=== PATIENT | male | born 1935 | race Caucasian/White ===

== ENCOUNTER → 2016-10-18 | Outpatient (CLI) | payer MEDICARE, OTHER ==
[~2016-10-18] MED LIST: ASP81TEC PO; HYDR-34 PO; LEVO500T69 PO; SMV20T PO
--- NOTE | 2016-10-18 16:44 | Diagnostic Imaging Report ---
Renal ultrasound. INDICATION: Bilateral renal cysts. FINDINGS: The right kidney is 10.8 cm and the left kidney is 6.9 cm in length. There is no hydronephrosis seen. There are multiple cysts seen in both kidneys up to 2.9 cm on the left side and up to 5.4 cm in the upper right kidney, and up to 7 cm in the lower aspect of the right kidney. Minimal thin septations in the right renal cysts are seen without nodular or solid component noted. No interval vascularity in these lesions is seen. The urinary bladder evaluation is limited because it is nearly empty with no definite abnormality. IMPRESSION: Multiple simple and minimally complicated renal cysts. Dictated by: Dictated on workstation # [id number]
== END ==
LOC: RAD 09:33
PROVIDERS: ATTEND Urology
DX: N28.1 Cyst of kidney, acquired (principal)
CPT/HCPCS: 76770

== ENCOUNTER 2018-11-10 05:57 | Outpatient (CLI) | payer MEDICARE, OTHER ==
[~2018-11-10] VITALS: Ht 176.5 cm; Wt 78.0 kg
== END 2018-11-10 13:39 | disposition home or self-care (01) ==
LOC: PREOP 05:57
PROVIDERS: ATTEND Surgery
DX: Z01.818 Encounter for other preprocedural examination (principal)

== ENCOUNTER 2018-11-12 10:57 | Day surgery (SDC) | payer MEDICARE, OTHER ==
[~2018-11-12] VITALS: Ht 176.5 cm; Wt 78.0 kg
[2018-11-12] MEDS ORDERED: NS IV 500 ML 500 ML ONE (11:03)
[2018-11-12] MEDS ORDERED: NS IV 500 ML 500 ML IV PRN (11:05)
[2018-11-12] MEDS ORDERED: LIDOCAINE JELLY 2% 6 ML SYRINGE MM PRN (11:15)
[2018-11-12] MEDS ORDERED: MIDAZOLAM 2 MG/2 ML (VERSED) VIAL IVP ONE (11:15)
[2018-11-12] MEDS ORDERED: fentaNYL INJECTION 100 MCG/2 ML AMP IVP ONE (11:15)
[2018-11-12 11:26] VITALS: BP 120/68
--- NOTE | 2018-11-12 11:42 | Conscious Sedation/ASA ---
Conscious Sedation Pre-Proced Time 11:00 ASA Score 2 For ASA 3 and 4: Consider anesthesia and medical clearance. Also, for patients with a history of failed moderate sedation consider anesthesia. Airway Lungs Heart ASA score ASA 1: a normal healthy patient ASA 2: a patient with a mild systemic disease (mid diabetes, controlled hypertension, obesity ASA 3: a patient with a severe systemic disease that limits activity (angina, COPD, prior Myocardial infarction) ASA 4: a patient with an incapacitating disease that is a constant threat to life (CHF, renal failure) ASA 5: a moribund patient not expected to survive 24 hrs. (ruptured aneurysm) ASA 6: a declared brain- patient whose organs are being harvested. For emergent operations, add the letter E after the classification Mallampati Classification Grade 2 Sedation Plan Analgesia, Amnesia, Plan communicated to team members, Discussed options with patient/fam, Discussed risks with patient/fam The patient is an appropriate candidate to undergo the planned procedure, sedation, and anesthesia. The patient immediately re-assessed prior to indication. BARBARA OSHEA MD Nov 12, 2018 11:42
--- NOTE | 2018-11-12 11:43 | Progress Note-Pre Operative ---
Pre-Operative Progress Note H&P Reviewed The H&P was reviewed, patient examined and no changes noted. Date Seen by Provider: Nov 12, 2018 Time Seen by Provider: 11:00 Date H&P Reviewed: Nov 12, 2018 Time H&P Reviewed: 11:00 Pre-Operative Diagnosis: hx of colon cancer BARBARA OSHEA MD Nov 12, 2018 11:43
--- NOTE | 2018-11-12 11:44 | Discharge Inst-Surgical ---
D/C Lap Instructions-DAYO Follow Up 5 yrs Activity as tolerated High Fiber Diet 25g or more per day Avoid Alcohol, Caffeine, Spicy [place] and Acid foods. Drink 64 fluid oz or more of fluids per day. Symptoms to Report: Fever over 101 degree F, Nausea/Vomiting If any problems/questions: Contact your physician or go to Emergency Room BARBARA OSHEA MD Nov 12, 2018 11:44
[2018-11-12] MEDS ORDERED: ACETAMINOPHEN 325 MG TABLET PO PRN (11:45)
[2018-11-12] MEDS ORDERED: ONDANSETRON 4 MG/2 ML (SDV) Z0FRAN IVP PRN (11:45)
[2018-11-12] MEDS ORDERED: HYDROcodone/APAP 5 MG/325 MG (LORTAB) TAB PO PRN (11:45)
[2018-11-12] MEDS ORDERED: morphine INJ 10 MG/ML 1ML (SYR OR VIAL) IVP PRN ×2 (11:45)
[2018-11-12] MEDS ORDERED: fentaNYL INJECTION 100 MCG/2 ML AMP ONE (12:32)
[2018-11-12] MEDS ORDERED: MIDAZOLAM 2 MG/2 ML (VERSED) VIAL ONE ×4 (12:32)
[2018-11-12] MEDS ORDERED: LIDOCAINE JELLY 2% 6 ML SYRINGE ONE (12:40)
[2018-11-12 13:25] VITALS: BP 86/52
--- NOTE | 2018-11-12 13:33 | Progress Note-Post Operative ---
Post-Operative Progess Note Surgeon (s)/Barge Engineer (s) Surgeon BARBARA OSHEA MD Barge Engineer: none Pre-Operative Diagnosis hx of colon cancer Post-Operative Diagnosis mild chroni stage 2 ext and int hemorrhoids, mild chronic radiation proctitis, normal colorectal anastamosis. Procedure & Operative Findings Date of Procedure 11/12/18 Procedure Performed/Findings colonoscopy Anesthesia Type cs Estimated Blood Loss Estimated blood loss (mL): minimal Specimens/Packing Specimens Removed none BARBARA OSHEA MD Nov 12, 2018 13:33
[2018-11-12 13:50] VITALS: BP 105/63
[2018-11-12 14:30] VITALS: BP 105/63
--- NOTE | 2018-11-12 16:00 | OPERATIVE REPORT ---
DATE OF SERVICE: 11/12/2018 ATTENDING PRIMARY CARE PHYSICIAN: Dr. Blair. PREOPERATIVE DIAGNOSES: Personal history of colon cancer as well as history of colon polyps. POSTOPERATIVE DIAGNOSES: Mild chronic stage II external and internal hemorrhoids. Normal colorectal anastomosis. Remainder of the colon was normal. PROCEDURE: Colonoscopy. SURGEON: Barbara Oshea MD. ANESTHESIA: Conscious sedation. ESTIMATED BLOOD LOSS: Minimal. FINDINGS: Mild chronic stage II external and internal hemorrhoids. Normal colorectal anastomosis. Remainder of the colon was normal. DISPOSITION: The patient tolerated the procedure well. INDICATION: The patient is an 83-year-old male known to us. We had seen him for followup colonoscopy. He was diagnosed with a colon cancer in 2000 and underwent what appears to be a left hemicolectomy and colorectal anastomosis. I done a colonoscopy 10/2015 and a tubular adenoma identified. He also does have a mild chronic radiation proctitis. DESCRIPTION OF PROCEDURE: The patient was brought to the endoscopy suite, laid in the left lateral decubitus position. After adequate IV pain and sedative medications and conscious sedation anesthesia, a digital rectal examination was performed. Mild chronic stage II external and internal hemorrhoids were identified, which were not actively edematous nor inflamed and no bleeding. Normal sphincter tone was felt and there were no palpable masses. Prostate gland was surgically absent. The endoscope was then intubated to the anus, rectum and gently insufflated. There were mild chronic inflammatory changes of the rectum, most likely consistent with a chronic radiation proctitis; however, there are no ulcerations or any bleeding. The colorectal anastomosis was identified with no recurrent lesions. The endoscope was then advanced to the remainder of the descending, transverse and ascending colon to the cecum. These segments were normal. There were no polyps or any neoplasms identified. The endoscope was then slowly withdrawn while taking a second look and suctioning of residual air with no additional findings. The patient tolerated the procedure well. We will recommend continuation of medical management with a high fiber diet with at least 30 grams of fiber daily to promote soft stools on a daily basis. No polyps were identified and even so his last colonoscopy showed a tubular adenoma and he may wait 5 years for his next colonoscopy. Job ID: [id number] DocumentID: [id number] Dictated Date: 11/12/2018 13:12:08 Cardiology Fellow Date: 11/12/2018 15:59:38 Dictated By: BARBARA OSHEA MD
== END 2018-11-12 14:30 | disposition home or self-care (01) ==
LOC: ENDO 10:57
PROVIDERS: ATTEND Surgery
DX: Z12.11 Encounter for screening for malignant neoplasm of colon (principal); K64.1 Second degree hemorrhoids; K64.8 Other hemorrhoids; K62.7 Radiation proctitis; E78.5 Hyperlipidemia, unspecified; E11.9 Type 2 diabetes mellitus without complications; J45.909 Unspecified asthma, uncomplicated; G89.29 Other chronic pain; M54.9 Dorsalgia, unspecified; I10 Essential (primary) hypertension; K21.9 Gastro-esophageal reflux disease without esophagitis; Z90.49 Acquired absence of other specified parts of digestive tract; Z88.5 Allergy status to narcotic agent; Z85.038 Personal history of other malignant neoplasm of large intestine; Z86.010 Personal history of colon polyps; Z85.46 Personal history of malignant neoplasm of prostate; Z85.828 Personal history of other malignant neoplasm of skin; Z96.641 Presence of right artificial hip joint; Z90.79 Acquired absence of other genital organ(s); Z82.49 Family history of ischemic heart disease and other diseases of the circulatory system

== ENCOUNTER 2021-03-23 05:39 | Outpatient (CLI) | payer MEDICARE, OTHER ==
[~2021-03-23] VITALS: Ht 176 cm; Wt 75.7 kg
[2021-03-23 13:09] VITALS: BP 136/84
[2021-03-23] MEDS ORDERED: SIMV20TA26 PO (13:13)
[2021-03-23 13:40] LABS: BASOPHILS % (AUTO) 1 % (0-10); EOSINOPHILS # (AUTO) 0.2 10^3/uL (0.0-0.3); EOSINOPHILS % (AUTO) 3 % (0-10); HEMATOCRIT 36 % (40-54); HEMOGLOBIN 11.3 g/dL (13.3-17.7); LYMPHOCYTES # (AUTO) 1.5 10^3/uL (1.0-4.0); LYMPHOCYTES % (AUTO) 23 % (12-44); MEAN CORPUSCULAR HEMOGLOBIN 30 pg (25-34); MEAN CORPUSCULAR HGB CONC 32 g/dL (32-36); MEAN CORPUSCULAR VOLUME 95 fL (80-99); MEAN PLATELET VOLUME 9.3 fL (9.0-12.2); MONOCYTES # (AUTO) 0.5 10^3/uL (0.0-1.0); MONOCYTES % (AUTO) 7 % (0-12); NEUTROPHILS # (AUTO) 4.2 10^3/uL (1.8-7.8); NEUTROPHILS % (AUTO) 66 % (42-75); PLATELET COUNT 187 10^3/uL (130-400); WHITE BLOOD COUNT 6.3 10^3/uL (4.3-11.0)
[2021-03-23 14:02] LABS: CALCIUM 8.9 MG/DL (8.5-10.1); CREATININE SERUM 1.23 MG/DL (0.60-1.30); POTASSIUM 4.6 MMOL/L (3.6-5.0)
== END 2021-03-23 14:17 | disposition home or self-care (01) ==
LOC: PREOP 05:39
PROVIDERS: ATTEND Otolaryngology Otolaryngology/Facial Plastic Surgery
DX: Z01.812 Encounter for preprocedural laboratory examination (principal); Z01.810 Encounter for preprocedural cardiovascular examination; L98.9 Disorder of the skin and subcutaneous tissue, unspecified
CPT/HCPCS: 36415; 80048; 85025; 87081; 93005

== ENCOUNTER 2021-03-31 07:28 | Day surgery (SDC) | payer MEDICARE, OTHER ==
[~2021-03-31] VITALS: Ht 176 cm; Wt 75.7 kg
[2021-03-31] VITALS (10 sets, daily range): BP systolic 122–147; BP diastolic 60–78
[~2021-03-31 07:28] MED LIST changes: +SIMV20TA26 PO
[2021-03-31] MEDS ORDERED: LACTATED RINGERS 1,000 ML IV PRN (08:00)
[2021-03-31] MEDS ORDERED: MUPIROCIN 2% OINT 22 GM (BACTROBAN) TUBE ONE (08:29)
[2021-03-31] MEDS ORDERED: LIDOCAINE/EPI 1%-1:100,000 (XYLOCAINE) 20ML ONE (08:29)
[2021-03-31] MEDS ORDERED: ONDANSETRON 4 MG/2 ML (SDV) Z0FRAN ONE (08:36)
[2021-03-31] MEDS ORDERED: proPOfol 200 MG/20 ML (DIPRIVAN) VIAL IV ONE (08:36)
[2021-03-31] MEDS ORDERED: LIDOCAINE PF 2% 5 ML (XYLOCAINE) VIAL ONE (08:36)
[2021-03-31] MEDS ORDERED: fentaNYL INJ 100 MCG/2 ML AMP ONE (08:36)
[2021-03-31] MEDS ORDERED: SEVOFLURANE (ULTANE) 15 ML INHAL SOLN ONE ×2 (09:35→11:01)
--- NOTE | 2021-03-31 09:59 | Progress Note-Pre Operative ---
Pre-Operative Progress Note H&P Reviewed The H&P was reviewed, patient examined and no changes noted. Date Seen by Provider: Mar 31, 2021 Time Seen by Provider: 09:00 Date H&P Reviewed: Mar 31, 2021 Time H&P Reviewed: 09:00 Pre-Operative Diagnosis: Left Mu-Ism Lesion x 2 CELIA PORTILLO MD Mar 31, 2021 09:59
--- NOTE | 2021-03-31 10:01 | Progress Note-Post Operative ---
Post-Operative Progess Note Surgeon (s)/Stock Holder (s) Surgeon CELIA PORTILLO MD Stock Holder n/a Pre-Operative Diagnosis Left Uatsdin Lesion x 2 Post-Operative Diagnosis same Post-Op Procedure Note Date of Procedure: Mar 31, 2021 Name of Procedure Performed: Excision of Left Uatsdin Lesions, Intermediate Repair Description & Findings Description and Findings: n/a Anesthesia Type lma Estimated Blood Loss minimal Packing none. Specimen(s) collected/removed left buddhist lesion x 2 for frozen sections CELIA PORTILLO MD Mar 31, 2021 10:01
[2021-03-31] MEDS ORDERED: ACETAMINOPHEN 325 MG TABLET PO PRN (10:15)
[2021-03-31] MEDS ORDERED: BSS 15 ML ONE (10:32)
[2021-03-31] MEDS ORDERED: ONDANSETRON 4 MG/2 ML (SDV) Z0FRAN IVP PRN (11:15)
[2021-03-31] MEDS ORDERED: morphine INJ 10 MG/ML 1ML (SYR OR VIAL) IVP ONE (11:15)
[2021-03-31] MEDS ORDERED: CEPH500T PO (12:02)
--- NOTE | 2021-03-31 12:57 | Anesthesia-General Post-Op ---
General Patient Condition Mental Status/LOC: Same as Preop Cardiovascular: Satisfactory Nausea/Vomiting: Absent Respiratory: Satisfactory Pain: Controlled Complications: Absent Post Op Complications Complications None Follow Up Care/Instructions Patient Instructions None needed. Anesthesia/Patient Condition Patient Condition Patient is doing well, no complaints, stable vital signs, no apparent adverse anesthesia problems. No complications reported per nursing. GRIFFIN SANCHEZ CRNA Mar 31, 2021 12:57
== END 2021-03-31 13:23 ==
LOC: SDC 07:28
PROVIDERS: ATTEND Otolaryngology Otolaryngology/Facial Plastic Surgery
DX: C44.319 Basal cell carcinoma of skin of other parts of face (principal); D22.39 Melanocytic nevi of other parts of face; I25.2 Old myocardial infarction; Z79.899 Other long term (current) drug therapy

== ENCOUNTER 2022-06-21 09:19 | Observation (INO) | payer MEDICARE, OTHER ==
[~2022-06-21] VITALS: Ht 175.3 cm; Wt 76.9 kg
[~2022-06-21 09:19] MED LIST changes: +CEPH500T PO
[2022-06-21 09:30] LABS: BASOPHILS % (AUTO) 1 % (0-10); EOSINOPHILS # (AUTO) 0.2 10^3/uL (0.0-0.3); EOSINOPHILS % (AUTO) 3 % (0-10); HEMATOCRIT 32 % (40-54); HEMOGLOBIN 10.6 g/dL (13.3-17.7); LYMPHOCYTES # (AUTO) 1.5 10^3/uL (1.0-4.0); LYMPHOCYTES % (AUTO) 27 % (12-44); MEAN CORPUSCULAR HEMOGLOBIN 31 pg (25-34); MEAN CORPUSCULAR HGB CONC 34 g/dL (32-36); MEAN CORPUSCULAR VOLUME 92 fL (80-99); MEAN PLATELET VOLUME 9.5 fL (9.0-12.2); MONOCYTES # (AUTO) 0.4 10^3/uL (0.0-1.0); MONOCYTES % (AUTO) 7 % (0-12); NEUTROPHILS # (AUTO) 3.5 10^3/uL (1.8-7.8); NEUTROPHILS % (AUTO) 62 % (42-75); PLATELET COUNT 159 10^3/uL (130-400); WHITE BLOOD COUNT 5.5 10^3/uL (4.3-11.0)
[2022-06-21 09:41] LABS: ALBUMIN 3.7 GM/DL (3.2-4.5); POTASSIUM 3.9 MMOL/L (3.6-5.0)
[2022-06-21 09:43] LABS: CALCIUM 8.6 MG/DL (8.5-10.1)
[2022-06-21 09:44] LABS: TOTAL PROTEIN 6.3 GM/DL (6.4-8.2)
[2022-06-21] MEDS ORDERED: ONDANSETRON 4 MG/2 ML (SDV) Z0FRAN IVP ONE ×2 (09:45→15:30)
[2022-06-21 09:46] LABS: BILIRUBIN,TOTAL 0.5 MG/DL (0.1-1.0)
[2022-06-21 09:48] LABS: CREATININE SERUM 1.17 MG/DL (0.60-1.30)
[2022-06-21 09:50] LABS: MAGNESIUM 1.8 MG/DL (1.6-2.4)
--- NOTE | 2022-06-21 10:29 | ED General ---
General Chief Complaint: Dizziness/Syncope Stated Complaint: WEAKNESS | NAUSEA Nursing Triage Note: this am on toilet having a bowel movement when he became dizzy, nauseated with dry heaves. ems arrives with patient at this time with IV established by EMS, 4 mg zofran given enroute with some ease of nausea. patient is keeping his eyes closed at this time stating his dizziness is better. Keiko Criminal Intelligence Analyst states she tested orthostatics and dizziness improved when supine. Source of Information: Patient, Family Exam Limitations: No Limitations History of Present Illness Date Seen by Provider: Jun 21, 2022 Time Seen by Provider: 09:21 Initial Comments This 87-year-old gentleman presents to the emergency room with complaints of vertigo type dizziness and vomiting that started this morning shortly after getting up. He has significant nystagmus with rightward gaze. He describes no other focal neurologic deficits. His dizziness was disabling and he was not able to walk independently this morning. He arrives via EMS. He had a just been up to use the restroom and have a bowel movement when the symptoms started. Nausea did not resolve with Zofran administered by EMS. Patient reports the vertigo is better with his eyes closed but it does not fatigue when his head is still. He has had prior episodes of vertigo but not to this extent. He also complains of feeling generally weak. He has not eaten in about 24 hours. 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 His primary care provider is Dr. Enriquez. Allergies and Home Medications Allergies Coded Allergies: codeine (Verified Adverse Reaction, Intermediate, CONFUSION, 11/10/18) Patient Home Medication List Home Medication List Reviewed: Yes Cephalexin (Cephalexin) 500 Mg Tablet, 500 MG PO TID Prescribed by: ALENA VILLALBA on 03/31/21 1202 Simvastatin (Simvastatin) 20 Mg Tablet, 20 MG PO HS, (Reported) Entered as Reported by: HAYLEY PINEDA on 03/23/21 1313 Last Action: Reviewed Review of Systems Review of Systems Constitutional: see HPI EENTM: no symptoms reported Respiratory: no symptoms reported Cardiovascular: no symptoms reported Gastrointestinal: see HPI Genitourinary: no symptoms reported Musculoskeletal: see HPI Skin: no symptoms reported Psychiatric/Neurological: See HPI Hematologic/Lymphatic: No Symptoms Reported Immunological/Allergic: no symptoms reported Past Ystvhzg-Rhzlco-Hzuncr Hx Patient Social History Tobacco Use?: No Use of E-Cig and/or Vaping dev: No Substance use?: No Alcohol Use?: No Pt feels they are or have been: No Immunizations Up To Date Influenza Vaccine Up-to-Date: Yes; Up-to-Date First/Initial COVID19 Vaccinat: yes Second COVID19 Vaccination Filiberto: yes Third COVID19 Vaccination Date: yes Seasonal Allergies Seasonal Allergies: No Past Medical History Surgeries: Yes (COLON CA REMOVED, CATARACTS, R HIP REPLACED, PROSTATE, skin ca, thymus CA) Abdominal (Colon cancer resection), Eye Surgery, Orthopedic, Prostatectomy 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) Cardiac: Yes High Cholesterol Neurological: No Sexually Transmitted Disease: No HIV/AIDS: No Genitourinary: Yes Prostate Problems Gastrointestinal: Yes (colon resection R/T COLON CANCER) Musculoskeletal: Yes Arthritis Endocrine: No HEENT: Yes (READING GLASSES) Loss of Vision: Denies Hearing Impairment: Denies Cancer: Yes (THYMUS) Prostate, Colon Did You Recieve Any Treatments: Yes What Type of Treatment Did You: Chemotherapy, Radiation, Surgical Intervention Psychosocial: No Integumentary: Yes (two left druze lesions) Blood Disorders: No Adverse Reaction/Blood Tranf: No (N/A) Physical Exam Vital Signs Vital Signs - First Documented 06/21/22 09:20 Temp 35.0 Pulse 78 Resp 20 B/P (MAP) 145/86 (105) Pulse Ox 100 O2 Delivery Room Air Capillary Refill : Less Than 3 Seconds Height, Weight, BMI Height: 5'9.50" Weight: 172lbs. 0.0oz. 78.534757td; 22.00 BMI Method: General Appearance: WD/WN, Mild Distress HEENT: TMs Normal, Normal ENT Inspection, Pharynx Normal, Other (Bilateral horizontal nystagmus with rightward gaze. Extraocular movements intact and equal bilaterally) Neck: Normal Inspection; No JVD Respiratory: Lungs Clear, Normal Breath Sounds, No Accessory Muscle Use Cardiovascular: Regular Rate, Rhythm, No Murmur Gastrointestinal: Normal Bowel Sounds, Non Tender, Soft Extremity: Normal Inspection, Other (Trace lower extremity edema) Neurologic/Psychiatric: Alert, Oriented x3, No Motor/Sensory Deficits, Normal Mood/Affect, Other (Nystagmus with rightward gaze, chronic paralysis of left forehead secondary to skin cancer removal) Skin: Normal Color, Warm/Dry Progress/Results/Core Measures Suspected Sepsis SIRS Temperature: Pulse: 78 Respiratory Rate: 20 Laboratory Tests 06/21/22 09:20: White Blood Count 5.5 Blood Pressure 145 /86 Mean: 105 Laboratory Tests 06/21/22 09:20: Creatinine 1.17, Platelet Count 159, Total Bilirubin 0.5 Results/Orders Lab Results Laboratory Tests Test 06/21/22 09:20 06/21/22 13:16 Range/Units White Blood Count 5.5 4.3-11.0 10^3/uL Red Blood Count 3.43 L 4.30-5.52 10^6/uL Hemoglobin 10.6 L 13.3-17.7 g/dL Hematocrit 32 L 40-54 % Mean Corpuscular Volume 92 80-99 fL Mean Corpuscular Hemoglobin 31 25-34 pg Mean Corpuscular Hemoglobin Concent 34 32-36 g/dL Red Cell Distribution Width 13.1 10.0-14.5 % Platelet Count 159 130-400 10^3/uL Mean Platelet Volume 9.5 9.0-12.2 fL Immature Granulocyte % (Auto) 1 % Neutrophils (%) (Auto) 62 42-75 % Lymphocytes (%) (Auto) 27 12-44 % Monocytes (%) (Auto) 7 0-12 % Eosinophils (%) (Auto) 3 0-10 % Basophils (%) (Auto) 1 0-10 % Neutrophils # (Auto) 3.5 1.8-7.8 10^3/uL Lymphocytes # (Auto) 1.5 1.0-4.0 10^3/uL Monocytes # (Auto) 0.4 0.0-1.0 10^3/uL Eosinophils # (Auto) 0.2 0.0-0.3 10^3/uL Basophils # (Auto) 0.0 0.0-0.1 10^3/uL Immature Granulocyte # (Auto) 0.0 0.0-0.1 10^3/uL Sodium Level 140 135-145 MMOL/L Potassium Level 3.9 3.6-5.0 MMOL/L Chloride Level 107 98-107 MMOL/L Carbon Dioxide Level 24 21-32 MMOL/L Anion Gap 9 5-14 MMOL/L Blood Urea Nitrogen 17 7-18 MG/DL Creatinine 1.17 0.60-1.30 MG/DL Estimat Glomerular Filtration Rate 60 BUN/Creatinine Ratio 15 Glucose Level 115 H 70-105 MG/DL Calcium Level 8.6 8.5-10.1 MG/DL Corrected Calcium 8.8 8.5-10.1 MG/DL Magnesium Level 1.8 1.6-2.4 MG/DL Total Bilirubin 0.5 0.1-1.0 MG/DL Aspartate Amino Transf (AST/SGOT) 15 5-34 U/L Alanine Aminotransferase (ALT/SGPT) 9 0-55 U/L Alkaline Phosphatase 74 40-136 U/L Total Protein 6.3 L 6.4-8.2 GM/DL Albumin 3.7 3.2-4.5 GM/DL Urine Color YELLOW Urine Clarity CLEAR Urine pH 6.0 5-9 Urine Specific [place] <=1.005 1.016-1.022 Urine Protein NEGATIVE NEGATIVE Urine Glucose (UA) NEGATIVE NEGATIVE Urine Ketones NEGATIVE NEGATIVE Urine Nitrite NEGATIVE NEGATIVE Urine Bilirubin NEGATIVE NEGATIVE Urine Urobilinogen 0.2 < = 1.0 MG/DL Urine Leukocyte Esterase NEGATIVE NEGATIVE Urine RBC (Auto) NEGATIVE NEGATIVE Urine RBC NONE /HPF Urine WBC RARE /HPF Urine Crystals PRESENT H /LPF Urine Amorphous Sediment RARE HOMAR URATES H /LPF Urine Bacteria NEGATIVE /HPF Urine Casts NONE /LPF Urine Mucus NEGATIVE /LPF Urine Culture Indicated NO My Orders Orders - MALIK WARD MD Cbc With Automated Diff (06/21/22 09:21) Comprehensive Metabolic Panel (06/21/22 09:21) Magnesium (06/21/22 09:21) Ua Culture If Indicated (06/21/22 09:21) Ed Iv/Invasive Line Start (06/21/22 09:21) Ondansetron Injection (Zofran Injectio (06/21/22 09:45) Lactated Ringers (Lr 1000 Ml Iv Solution (06/21/22 10:45) Promethazine Injection (Phenergan Injec (06/21/22 10:45) Iohexol Injection (Omnipaque 350 Mg/Ml 1 (06/21/22 11:00) Received Contrast (Hold Metformin- Contr (06/21/22 11:00) Ns (Ivpb) (Sodium Chloride 0.9% Ivpb Bag (06/21/22 11:00) Ct Angio Head/Neck (06/21/22 10:57) Ondansetron Injection (Zofran Injectio (06/21/22 15:30) Meclizine Tablet (Antivert Tablet) (06/21/22 15:17) General/Regular (06/21/22 Lunch) Code/Resuscitation (06/21/22 15:37) Ed Admission (Communication) (06/21/22 15:37) Medications Given in ED Current Medications Medications Dose Ordered Sig/Emily Route Start Time Stop Time Status Last Admin Dose Admin Iohexol 75 ml ONCE ONCE IV 06/21/22 11:00 06/21/22 11:01 DC 06/21/22 11:13 75 ML Lactated Ringer's 1,000 ml @ 0 mls/hr Q0M ONCE IV 06/21/22 10:45 06/21/22 10:46 DC 06/21/22 10:56 1,000 MLS/HR Ondansetron HCl 4 mg ONCE ONCE IVP 06/21/22 09:45 06/21/22 09:46 DC 06/21/22 09:49 4 MG Ondansetron HCl 4 mg ONCE ONCE IVP 06/21/22 15:30 06/21/22 15:31 DC 06/21/22 15:22 4 MG Promethazine HCl 25 mg ONCE ONCE IVP 06/21/22 10:45 06/21/22 10:46 DC 06/21/22 10:56 25 MG Sodium Chloride 100 ml ONCE ONCE IV 06/21/22 11:00 06/21/22 11:01 DC 06/21/22 11:13 80 ML Vital Signs/I&O 06/21/22 06/21/22 06/21/22 09:20 09:20 17:02 Temp 35.0 Pulse 78 85 Resp 20 16 B/P (MAP) 145/86 (105) 127/73 Pulse Ox 100 96 O2 Delivery Room Air Room Air Room Air Capillary Refill : Less Than 3 Seconds Blood Pressure Mean: 105 Progress Note : Progress Note Patient was interviewed and examined. He was found to have significant nysta gmus with rightward gaze. No other focal neurologic deficits were identified. Because his vertigo was not fatiguing and he has significant history of multiple cancers, CT angiogram of the head and neck was obtained. This CT was reviewed by me. I noted no acute abnormalities, intracranial hemorrhages, intracranial masses, or large vessel occlusions. Radiologist's report was also reviewed and did not note any acute abnormalities. Patient was treated with a liter of LR and Phenergan. This initially significantly improved his symptoms both subjectively and on exam with much reduced nystagmus. Ahmet maneuver was attempted. This did not seem to further improve his symptoms. Within an hour of Ahmet maneuver, symptoms began to rebound. He is being further treated with Zofran and meclizine. Labs were reviewed including CBC, CMP, magnesium, and urinalysis. No significant abnormalities were identified. Labs were reviewed by me in their entirety. We did attempt to walk patient after the initial treatment and Ahmet maneuver. Nursing staff did not feel he was safe to attempt ambulation. Patient did not feel comfortable returning home in his current condition although he was much improved from his initial presentation. After discussion with patient and family, it was determined admission for observation was most appropriate so that he could receive supportive care, assisted ambulati on, and IV medications and hydration. By the time of admission his vertigo was more typical in nature and that it seemed fatigable and worsened with position changes. I discussed CODE STATUS with patient and his daughter. Patient elects a DO NOT RESUSCITATE status and does possess a signed DNR order. Diagnostic Imaging Diagonstic Imaging: CT Plain Films/CT/US/NM/MRI: other (CT angiogram head and neck) Comments CT angiogram head and neck viewed by me and report reviewed. See report below: NAME: ANGEL [facility]ERRY [facility] REC#: [id number] PT STATUS: REG ER : 1935 PHYSICIAN: MALIK WARD MD ADMIT DATE: 06/21/22/ER Draft Date of Exam:06/21/22 CT ANGIO HEAD/NECK PROCEDURE: CT angiography of the head and CT angiography of the neck with and without contrast. TECHNIQUE: Contiguous noncontrast images were obtained from the skull base through the vertex. After intravenous contrast administration, helical CT angiography of the neck was performed. Source data was reformatted into 3D MIP projections. Delayed post contrast acquisition was also obtained. Auto Exposure Controls were utilized during the CT exam to meet ALARA standards for radiation dose reduction. INDICATION: Weakness, nausea and vertigo. No prior studies are available for comparison. CTA NECK: There is a three-vessel branching pattern to the aortic arch. The right and left common carotid arteries appear to be widely patent. The carotid bifurcations are unremarkable. The right and left internal carotid arteries appear to be widely patent. The vertebral arteries are codominant. No focal stenosis or occlusion is identified. CTA HEAD: Precontrast imaging through the brain demonstrates ventricles and sulci to be within normal limits. No sulcal effacement or midline shift is identified. No acute intra-axial or extra-axial hemorrhage is detected. Cisterns are patent. Visualized paranasal sinuses are clear. The delayed postcontrast imaging through the brain without evidence of an enhancing lesion. CT angiographic portion of the study demonstrates the basilar artery be widely patent. The right and left posterior cerebral arteries appear patent. The anterior cerebral arteries are patent. The M1 and M2 branches of the right and left middle cerebral arteries are widely patent. No thromboemboli are seen. There is no large vessel occlusion. IMPRESSION: Essentially unremarkable CT angiogram of the head and neck. No thrombi emboli or large vessel occlusion is detected. Dictated on workstation # [id number] Dict: 06/21/22 1120 Trans: 06/21/22 1132 [id number] Interpreted by: CHICHO PINA MD Departure Communication (Admissions) Time/Spoke to Admitting Phy: 15:20 Dr. Waggoner Impression Primary Impression: Vertigo Additional Impressions: Disequilibrium Vomiting Qualified Codes: R11.2 - Nausea with vomiting, unspecified Generalized weakness Disposition: ADMITTED INPATIENT Condition: Stable Admissions Decision to Admit Reason: Admit from ER (General) Decision to Admit/Date: Jun 21, 2022 Time/Decision to Admit Time: 15:20 Departure-Patient Inst. Referrals: NIEVES ENRIQUEZ MD (PCP/Family) Primary Care Physician Copy Copies To 1: NIEVES ENRIQUEZ MD, JOSHUA T MD Jun 21, 2022 10:29
[2022-06-21] MEDS ORDERED: PROMETHAZINE INJ 25 MG/ML (PHENERGAN) AMP IVP ONE (10:45)
[2022-06-21] MEDS ORDERED: LACTATED RINGERS 1,000 ML IV ONE (10:45)
[2022-06-21] MEDS ORDERED: IOHEXOL 350 MG/ML 100 ML (OMNIPAQUE 350) VIAL IV ONE (11:00)
[2022-06-21] MEDS ORDERED: HOLD METFORMIN - RECEIVED CONTRAST 20 ML VIAL IV SCH (11:00)
[2022-06-21] MEDS ORDERED: NS 100 ML (IVPB) BAG IV ONE (11:00)
--- NOTE | 2022-06-21 11:32 | Diagnostic Imaging Report ---
PROCEDURE: CT angiography of the head and CT angiography of the neck with and without contrast. TECHNIQUE: Contiguous noncontrast images were obtained from the skull base through the vertex. After intravenous contrast administration, helical CT angiography of the neck was performed. Source data was reformatted into 3D MIP projections. Delayed post contrast acquisition was also obtained. Auto Exposure Controls were utilized during the CT exam to meet ALARA standards for radiation dose reduction. INDICATION: Weakness, nausea and vertigo. No prior studies are available for comparison. CTA NECK: There is a three-vessel branching pattern to the aortic arch. The right and left common carotid arteries appear to be widely patent. The carotid bifurcations are unremarkable. The right and left internal carotid arteries appear to be widely patent. The vertebral arteries are codominant. No focal stenosis or occlusion is identified. CTA HEAD: Precontrast imaging through the brain demonstrates ventricles and sulci to be within normal limits. No sulcal effacement or midline shift is identified. No acute intra-axial or extra-axial hemorrhage is detected. Cisterns are patent. Visualized paranasal sinuses are clear. The delayed postcontrast imaging through the brain without evidence of an enhancing lesion. CT angiographic portion of the study demonstrates the basilar artery be widely patent. The right and left posterior cerebral arteries appear patent. The anterior cerebral arteries are patent. The M1 and M2 branches of the right and left middle cerebral arteries are widely patent. No thromboemboli are seen. There is no large vessel occlusion. IMPRESSION: Essentially unremarkable CT angiogram of the head and neck. No thrombi emboli or large vessel occlusion is detected. Dictated by: Dictated on workstation # [id number]
[2022-06-21 13:25] LABS: BILIRUBIN,URINE NEGATIVE (NEGATIVE); CLARITY,URINE CLEAR; COLOR,URINE YELLOW; GLUCOSE, URINE (UA) NEGATIVE (NEGATIVE); KETONES,URINE NEGATIVE (NEGATIVE); LEUKOCYTE ESTERASE ,URINE NEGATIVE (NEGATIVE); NITRITE,URINE NEGATIVE (NEGATIVE); PROTEIN,URINE NEGATIVE (NEGATIVE)
[2022-06-21 13:51] LABS: AMORPHOUS SEDIMENT,UR RARE AMOR URATES /LPF; WBC,URINE RARE /HPF
[2022-06-21 13:52] LABS: BACTERIA,URINE NEGATIVE /HPF
[2022-06-21] MEDS ORDERED: MECLIZINE 25 MG (ANTIVERT) TAB PO STA (15:17)
[2022-06-21 17:19] VITALS: BP 170/76
[2022-06-21 17:21] VITALS: BP 170/76
[2022-06-21] MEDS ORDERED: BISACODYL 10 MG SUPP (DULCOLAX) PR PRN (17:30)
[2022-06-21] MEDS ORDERED: LACTULOSE SYRUP 10GM/15ML (ENULOSE) 30ML UDC PO PRN (17:30)
[2022-06-21] MEDS ORDERED: polyethylene glycoL POWDER 17 GM (MIRALAX) PACK PO PRN (17:30)
[2022-06-21] MEDS ORDERED: ONDANSETRON 4 MG/2 ML (SDV) Z0FRAN IV PRN (17:30)
[2022-06-21] MEDS ORDERED: CALCIUM CARBONATE 500 MG (TUMS) TAB.CHEW PO PRN (17:30)
[2022-06-21] MEDS ORDERED: MELATONIN 3 MG TABLET PO PRN (17:30)
[2022-06-21] MEDS ORDERED: ONDANSETRON 4 MG (ZOFRAN) ORAL DISSOLVE TAB PO PRN (17:30)
[2022-06-21] MEDS ORDERED: LACTATED RINGERS 1,000 ML IV SCH (17:30)
[2022-06-21] MEDS ORDERED: ACETAMINOPHEN 325 MG TABLET PO PRN (17:30)
[2022-06-21] MEDS ORDERED: ANTACID SUSP 30 ML UDC (MYLANTA) PO PRN (17:30)
[2022-06-21] MEDS ORDERED: MILK OF MAGNESIA 400 MG/5 ML 30 ML UDC PO PRN (17:30)
[2022-06-21] MEDS ORDERED: ENOXAPARIN 40 MG/0.4 ML (LOVENOX) SYR SC SCH (17:30)
[2022-06-21 19:32] VITALS: BP 138/78
[2022-06-21] MEDS: DOCUSATE SODIUM 100 MG (COLACE) CAP PO SCH (21:00)
[2022-06-21] MEDS: SENNOSIDES 8.6 MG (SENOKOT) TAB PO SCH (21:00)
[2022-06-21 23:45] VITALS: BP 132/73
[2022-06-22 04:00] VITALS: BP 127/66
[2022-06-22 06:37] LABS: POTASSIUM 4.3 MMOL/L (3.6-5.0)
[2022-06-22 06:39] LABS: CALCIUM 8.5 MG/DL (8.5-10.1)
[2022-06-22 06:43] LABS: CREATININE SERUM 1.11 MG/DL (0.60-1.30)
[2022-06-22 08:01] VITALS: BP 114/72
--- NOTE | 2022-06-22 09:56 | Occupational Therapy Eval ---
OT Evaluation-General/PLF Medical Diagnosis Admission Date Jun 21, 2022 at 17:02 Height/Weight Height (Feet): 5 Height (Inches): 9.50 Weight (Pounds): 172 Weight (Ounces): 0.0 ADL-Prior Level of Function SCALE: Activities may be completed with or without assistive devices. 8-Bwfdvmcgcw-omhedmx completes the activity by him/herself with no assistance from a helper. 5-Set-up or Clean-up Assistance-helper sets up or cleans up; patient completes activity. [place] assists only prior to or following the activity. 4-Supervision or Touching Assistance-helper provides verbal cues and/or t ouching/steadying and/or contact guard assistance as patient completes activity. Assistance may be provided throughout the activity or intermittently. 3-Partial/Moderate Assistance-helper does LESS THAN HALF the effort. [place] lifts, holds or supports trunk or limbs, but provides less than half the effort. 2-Substantial/Maximal Assistance-helper does MORE THAN HALF the effort. [place] lifts or holds trunk or limbs and provides more than half the effort. 8-Wjnvuswns-cbqeap does ALL the effort. Patient does none of the effort to complete the activity. Or, the assistance of 2 or more helpers is required for the patient to complete the activity. If activity was not attempted, code reason: 7-Patient Refused. 9-Not Applicable-not attempted and the patient did not perform the activity before the current illness, exacerbation or injury. 10-Not Attempted due to Environmental Limitations-(lack of equipment, weather restraints, etc.). 88-Not Attempted due to Medical Conditions or Safety Concerns. OT Senior Care Goals Senior Care Goals 1=Demonstrate adherence to instructed precautions during ADL tasks. 2=Patient will verbalize/demonstrate understanding of assistive devices/modifications for ADL. 3=Patient will improve strength/tolerance for activity to enable patient to perform ADL's. OT Education/Plan Treatment Plan/Plan of Care Patient would benefit from OT for education, treatment and training to promote independence in ADL's, mobility, safety and/or upper extremity function for ADL's. COLE BARRIOS OT Jun 22, 2022 09:56
[2022-06-22] MEDS: DOCUSATE SODIUM 100 MG (COLACE) CAP PO SCH (10:01)
[2022-06-22] MEDS: SENNOSIDES 8.6 MG (SENOKOT) TAB PO SCH (10:02)
--- NOTE | 2022-06-22 10:48 | Occupational Therapy Eval ---
OT Evaluation-General/PLF Medical Diagnosis Admission Date Jun 21, 2022 at 17:02 Medical Diagnosis: Vertigo Onset Date: Jun 21, 2022 Therapy Diagnosis Therapy Diagnosis: unsteady gait and mobility, need for assistance w/ personal care Height/Weight Height (Feet): 5 Height (Inches): 9.50 Weight (Pounds): 172 Weight (Ounces): 0.0 Precautions Precautions/Isolations: Fall Prevention, Standard Precautions Weight Bear Status Weight Bearing Restriction: Weight Bearing/Tolerated Referral Referral Reason: Evaluation/Treatment Medical History Additional Medical History R KELLY, Cancers Social History Home: Single Level (+) Current Living Status: Alone ADL-Prior Level of Function SCALE: Activities may be completed with or without assistive devices. 4-Badklgkwwf-vtznpkx completes the activity by him/herself with no assistance from a helper. 5-Set-up or Clean-up Assistance-helper sets up or cleans up; patient completes activity. [place] assists only prior to or following the activity. 4-Supervision or Touching Assistance-helper provides verbal cues and/or touching/steadying and/or contact guard assistance as patient completes activity. Assistance may be provided throughout the activity or intermittently. 3-Partial/Moderate Assistance-helper does LESS THAN HALF the effort. [place] lifts, holds or supports trunk or limbs, but provides less than half the effort. 2-Substantial/Maximal Assistance-helper does MORE THAN HALF the effort. [place] lifts or holds trunk or limbs and provides more than half the effort. 5-Cricnxfmk-urthdq does ALL the effort. Patient does none of the effort to c omplete the activity. Or, the assistance of 2 or more helpers is required for the patient to complete the activity. If activity was not attempted, code reason: 7-Patient Refused. 9-Not Applicable-not attempted and the patient did not perform the activity before the current illness, exacerbation or injury. 10-Not Attempted due to Environmental Limitations-(lack of equipment, weather restraints, etc.). 88-Not Attempted due to Medical Conditions or Safety Concerns. 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 Drive Self: Yes OT Current Status Subjective Not dizzy laying down, slight dizziness sitting EOB, unable to stand w/o sway at side of bed, Mental Status/Objective Patient Orientation: Person, Place, Time, Situation, Normal For Age Current Glasses/Contacts: Yes Hearing Aids: No Dentures/Partials: No Upper Extremity ROM BUE ROM WNL Upper Extremity Coordination intact Upper Extremity Sensation intact Upper Extremity Strength -4/5 BUE grossly ADL-Treatment ADL-Current While evaluating ADLS patient becomes light headed increased sway and returns to sitting position, Daughter enters room while evaluation ongoing Eating (QC): 6 Oral Hygiene (QC): 5 (sitting) Shower/Bathe Self (QC): 88 Upper Body Dressing (QC): 5 Lower Body Dressing (QC): 3 On/Off Footwear (QC): 3 Toileting Hygiene (QC): 4 Patient must use at least one hand to stabilize for standing Education OT Patient Education: Energy conservation, Instructions to caregiver, Modified ADL techniques, Progress toward Goal/Update tx plan, Purpose of tx/functional activities, Reviewed precautions, Rehab process, Safety issues, Transfer techniques, Use of adapted equipment Teaching Recipient: Patient, Family Teaching Methods: Demonstration, Discussion Response to Teaching: Verbalize Understanding, Reinforcement Needed OT Solid State Tester Goals Custodial Goals Eating (QC): 6 Oral Hygiene (QC): 6 Toileting Hygiene (QC): 6 Shower/Bathe Self (QC): 6 Upper Body Dressing (QC): 6 Lower Body Dressing (QC): 6 On/Off Footwear (QC): 6 1=Demonstrate adherence to instructed precautions during ADL tasks. 2=Patient will verbalize/demonstrate understanding of assistive devices/modifications for ADL. 3=Patient will improve strength/tolerance for activity to enable patient to per form ADL's. OT Education/Plan Discharge Recommendations Plan/Recommendations: Continue POC Treatment Plan/Plan of Care Patient would benefit from OT for education, treatment and training to promote independence in ADL's, mobility, safety and/or upper extremity function for ADL's. Plan of Care: ADL Retraining, Functional Mobility Treatment Duration: Jun 30, 2022 Frequency: 5 times per week Estimated Hrs Per Day: .25 hour per day Agreement: Yes Rehab Potential: Guarded Time Start Time: 09:31 Stop Time: 09:56 DATE: Jun 22, 2022 Total Time Billed (hr/min): 25 Billed Treatment Time 1 visit EVM 1, ADL 1 25 min COLE BARRIOS OT Jun 22, 2022 10:48
[2022-06-22] MEDS ORDERED: GADOTERATE 0.5 MMOL/ML (CLARISCAN) 15 ML VIAL IV ONE (11:30)
--- NOTE | 2022-06-22 11:55 | History & Physical-Hospitalist ---
History of Present Illness Date Seen 06/22/22 Time Seen by a Provider: 09:55 Attending Physician Theodore Blair MD PCP Admitting Physician: Kaela Juares MD Attending Physician: Kaela Juares MD Referring Physician Date of Admission Jun 21, 2022 at 17:02 Home Medications & Allergies Home Medications Reviewed patient Home Medication Reconciliation performed by pharmacy medication reconciliations television technician and/or nursing. Patients Allergies have been reviewed. Allergies Allergies Coded Allergies codeine (Verified Adverse Reaction, Intermediate, CONFUSION, 11/10/18) Past Urwhsqf-Qzempc-Avzntl Hx Patient Social History Tobacco Use?: No Tobacco type used: Cigarettes Smoking Status: Former Smoker Use of E-Cig and/or Vaping dev: No Substance use?: No Alcohol Use?: No Pt feels they are or have been: No Immunizations Up To Date Date of Influenza Vaccine: Nov 21, 2020 First/Initial COVID19 Vaccinat: yes Second COVID19 Vaccination Filiberto: yes Date of Pneumonia Vaccine: Jan 02, 2018 Seasonal Allergies Seasonal Allergies: No Current Status Advance Directives: No Advance Directive Location: Home Communicates: Verbally Primary Language: Egyptian Preferred Spoken Language: Egyptian Is interpretation needed?: No Sensory deficits: Vision impairment, Hearing impairment Implanted or Applied Medical D: Orthopedic hardware Past Medical History Surgeries: Abdominal (Colon cancer resection), Eye Surgery, Orthopedic, Prostatectomy High Cholesterol Sexually Transmitted Disease: No HIV/AIDS: No Prostate Problems Arthritis Loss of Vision: Denies Hearing Impairment: Denies Prostate, Colon Did You Recieve Any Treatments: Yes What Type of Treatment Did You: Chemotherapy, Radiation, Surgical Intervention Blood Disorders: No Adverse Reaction/Blood Tranf: No (N/A) Physical Exam Physical Exam Vital Signs Vital Signs - First Documented 06/21/22 09:20 Temp 35.0 Pulse 78 Resp 20 B/P (MAP) 145/86 (105) Pulse Ox 100 O2 Delivery Room Air Capillary Refill : Less Than 3 Seconds Height, Weight, BMI Height: 5'9.50" Weight: 172lbs. 0.0oz. [id number]; 25.02 BMI Method: Results Results/Procedures Labs Laboratory Tests 06/21/22 09:20 06/22/22 05:54 Patient resulted labs reviewed. Imaging: Reviewed Imaging Report Assessment/Plan Admission Diagnosis Vertigo Admission Status: Observation Assessment and Plan Vertigo CTA without acute abnormalities No response to Ahmet maneuver Symptoms persist Obtain MRI PT/OT IRU evaluation Diagnosis/Problems Diagnosis/Problems (1) Vertigo Status: Acute (2) Disequilibrium Status: Acute (3) Generalized weakness Status: Acute (4) Advanced age Status: Chronic KAELA JUARES MD Jun 22, 2022 11:55
[2022-06-22 11:57] VITALS: BP 135/74
--- NOTE | 2022-06-22 12:22 | Diagnostic Imaging Report ---
CLINICAL INDICATION: Patient had vertigo. Rule out possible stroke. EXAM: MRI of the brain performed without and with 14 cc of Clariscan IV contrast. Sequences include axial DWI, ADC map, axial gradient echo, axial FLAIR, axial T1, axial T2, axial T1 post IV contrast whole brain, coronal T1 fat-sat post IV contrast whole brain, and sagittal T1 fat-sat post IV contrast whole brain. COMPARISON: CT angiogram of the head/neck dated 06/21/2022. FINDINGS: There is no evidence of acute cerebral infarct, intracranial hemorrhage, or gross mass effect. The brain parenchymal volume appears appropriate for patient's age. There are multiple focal and patchy areas of high T2 signal white matter changes seen throughout both cerebral hemispheres and periventricular regions, most likely representing chronic small vessel ischemic disease. There is normal hendrickson-white matter distinction. There is no significant midline shift or herniation. The [place] vascular structures show no gross abnormality as visualized. There is no evidence of hydrocephalus. The basal cisterns are unremarkable. The skull, extracranial soft tissue, and orbits are unremarkable. The paranasal sinuses are unremarkable. Temporal bones show no significant abnormality. IMPRESSION: 1: There is no evidence of acute intracranial process. There is no acute cerebral infarct, intracranial hemorrhage, or hydrocephalus. There is no abnormal IV contrast enhancement. 2: Age-related brain parenchymal changes including chronic small vessel ischemic disease. Dictated by: Dictated on workstation # [id number]
--- NOTE | 2022-06-22 13:20 | Physical Therapy Progress Note ---
Therapy Progress Note Attempted to see patient for am treatment, however nurse reports patient in MRI. Upon returning from lunch patient is transferring to ARU. NIEVES SPEARS PT Jun 22, 2022 13:20
[2022-06-22 14:19] VITALS: BP 135/74
--- NOTE | 2022-06-22 21:48 | Short Stay Summary-Hospitalist ---
History of Present Illness HPI/Chief Complaint Wilson Suarez (Bob) is an 87 year old male with PMH vertigo, hyperlipidemia, who presented with dizziness. He has been having trouble walking. He denies focal weakness. He denies dysphasia. He denies fevers and chills. He denies chest pain and palpitations. He denies nausea, vomiting, and diarrhea. He continues to have dizziness this morning. He continues to feel unsteady. Source: patient Exam Limitations: no limitations Date Seen 06/22/22 Time Seen by a Provider: 09:55 Attending Physician Theodore Blair MD PCP Admitting Physician: Kaela Juares MD Attending Physician: Kaela Juares MD Referring Physician Date of Admission Jun 21, 2022 at 17:02 Home Medications & Allergies Home Medications Reviewed patient Home Medication Reconciliation performed by pharmacy medication reconciliations emergency medical technician and/or nursing. Patients Allergies have been reviewed. Allergies Allergies Coded Allergies codeine (Verified Adverse Reaction, Intermediate, CONFUSION, 11/10/18) Past Onpbziq-Ppkefz-Kphhua Hx Patient Social History Tobacco Use?: No Tobacco type used: Cigarettes Smoking Status: Former Smoker Use of E-Cig and/or Vaping dev: No Substance use?: No Alcohol Use?: No Pt feels they are or have been: No Immunizations Up To Date Date of Influenza Vaccine: Nov 21, 2020 First/Initial COVID19 Vaccinat: yes Second COVID19 Vaccination Filiberto: yes Date of Pneumonia Vaccine: Jan 02, 2018 Seasonal Allergies Seasonal Allergies: No Current Status Advance Directives: No Advance Directive Location: Home Communicates: Verbally Primary Language: Swiss Preferred Spoken Language: Swiss Is interpretation needed?: No Sensory deficits: Vision impairment, Hearing impairment Implanted or Applied Medical D: Orthopedic hardware Past Medical History Surgeries: Abdominal (Colon cancer resection), Eye Surgery, Orthopedic, Prostatectomy High Cholesterol Sexually Transmitted Disease: No HIV/AIDS: No Prostate Problems Arthritis Loss of Vision: Denies Hearing Impairment: Denies Prostate, Colon Did You Recieve Any Treatments: Yes What Type of Treatment Did You: Chemotherapy, Radiation, Surgical Intervention Blood Disorders: No Adverse Reaction/Blood Tranf: No (N/A) Family Medical History No Pertinent Family Hx Review of Systems Constitutional: dizziness EENTM: no symptoms reported Respiratory: no symptoms reported Cardiovascular: no symptoms reported Gastrointestinal: no symptoms reported Physical Exam Physical Exam Vital Signs Vital Signs - First Documented 06/21/22 09:20 Temp 35.0 Pulse 78 Resp 20 B/P (MAP) 145/86 (105) Pulse Ox 100 O2 Delivery Room Air Capillary Refill : Less Than 3 Seconds Height, Weight, BMI Height: 5'9.50" Weight: 172lbs. 0.0oz. 78.099540bz; 25.02 BMI Method: General Appearance: No Apparent Distress, WD/WN HEENT: PERRL/EOMI, Pharynx Normal Neck: Normal Inspection; No JVD Respiratory: Lungs Clear, No Respiratory Distress Cardiovascular: Regular Rate, Rhythm, No Murmur Gastrointestinal: Normal Bowel Sounds, Non Tender, Soft Extremity: Normal Inspection, No Pedal Edema Neurologic/Psychiatric: Alert, Oriented x3, Normal Mood/Affect Skin: Normal Color, Warm/Dry Results Results/Procedures Labs Laboratory Tests 06/21/22 09:20 06/22/22 05:54 Patient resulted labs reviewed. Imaging: Reviewed Imaging Report Short Stay Diagnosis Discharge Diagnosis-Short Stay Admission Diagnosis Vertigo Final Discharge Diagnosis Vertigo Conclusion Plan Vertigo CTA without acute abnormalities No response to Ahmet maneuver MRI without acute abnormalities Symptoms persist PT/OT Transfer to inpatient rehab Diagnosis/Problems Diagnosis/Problems (1) Vertigo Status: Acute (2) Disequilibrium Status: Acute (3) Generalized weakness Status: Acute (4) Advanced age Status: Chronic KAELA JUARES MD Jun 22, 2022 21:48
== END 2022-06-22 12:31 ==
LOC: EDUNIT# 09:19 → ER 09:20 → UNDOADMOB 17:02 → 4TH 17:02 → UNDODISOB 06-22 14:09
PROVIDERS: ADMIT Internal Medicine; ATTEND Internal Medicine
DX: R42 Dizziness and giddiness (principal); R53.1 Weakness; Z87.891 Personal history of nicotine dependence
CPT/HCPCS: 70496; 70498; 70553; 80048; 80053; 80061; 81000; 83735; 85025; 96361; 96372; 96374; 96375; 96376; 97166; 97535; 99283; G0378; 36415

== ENCOUNTER 2022-06-22 13:01 | Inpatient (IN) | payer MEDICARE, OTHER ==
[~2022-06-22] VITALS: Ht 175.3 cm; Wt 75.0 kg
[2022-06-22] MEDS ORDERED: CALCIUM CARBONATE 500 MG (TUMS) TAB.CHEW PO PRN (13:45)
[2022-06-22] MEDS ORDERED: ONDANSETRON 4 MG (ZOFRAN) ORAL DISSOLVE TAB PO PRN (13:45)
[2022-06-22] MEDS ORDERED: ALPRAZolam 0.25 MG (XANAX) TAB PO PRN (13:45)
[2022-06-22] MEDS ORDERED: ACETAMINOPHEN 325 MG TABLET PO PRN (13:45)
[2022-06-22] MEDS ORDERED: MELATONIN 3 MG TABLET PO PRN (13:45)
[2022-06-22] MEDS ORDERED: LACTULOSE SYRUP 10GM/15ML (ENULOSE) 30ML UDC PO PRN (13:45)
[2022-06-22] MEDS ORDERED: BISACODYL 10 MG SUPP (DULCOLAX) PR PRN (13:45)
[2022-06-22] MEDS ORDERED: FLEET ENEMA ADULT 1 EA BTL PR PRN (13:45)
[2022-06-22] MEDS ORDERED: DOCUSATE SODIUM 100 MG (COLACE) CAP PO PRN (13:45)
[2022-06-22] MEDS ORDERED: diphenhydrAMINE 25 MG TAB (BENADRYL) PO PRN (13:45)
[2022-06-22] MEDS ORDERED: LOPERAMIDE 2 MG (IMODIUM) TABLET PO PRN (13:45)
[2022-06-22 14:00] VITALS: BP 165/79
--- NOTE | 2022-06-22 14:38 | Occupational Therapy Eval ---
OT Evaluation-General/PLF Medical Diagnosis Admission Date Jun 22, 2022 at 13:58 Medical Diagnosis: vertigo Onset Date: Jun 21, 2022 Therapy Diagnosis Therapy Diagnosis: decreased self care, decreased functional mobility, decreased activity vianca Height/Weight Height (Feet): 5 Height (Inches): 9.50 Weight (Pounds): 172 Weight (Ounces): 0.0 Precautions Precautions/Isolations: Fall Prevention, Standard Precautions Referral Physician: Doris Referral Reason: Evaluation/Treatment Medical History Pertinent Medical History: Arthritis Additional Medical History Total hip replacement, multiple cancers. Hard of hearing, decreased vision Current History Pt reported dizziness while toileting at home. Admitted to acute care through ED. Reviewed History: Yes Social History Home: Assisted Living Current Living Status: Alone ADL-Prior Level of Function SCALE: Activities may be completed with or without assistive devices. 6-Npabnerakt-fdfijkj completes the activity by him/herself with no assistance from a helper. 5-Set-up or Clean-up Assistance-helper sets up or cleans up; patient completes activity. [place] assists only prior to or following the activity. 4-Supervision or Touching Assistance-helper provides verbal cues and/or touching/steadying and/or contact guard assistance as patient completes activity. Assistance may be provided throughout the activity or intermittently. 3-Partial/Moderate Assistance-helper does LESS THAN HALF the effort. [place] lifts, holds or supports trunk or limbs, but provides less than half the effort. 2-Substantial/Maximal Assistance-helper does MORE THAN HALF the effort. [place] lifts or holds trunk or limbs and provides more than half the effort. 2-Ivhipkrui-grmwfo does ALL the effort. Patient does none of the effort to complete the activity. Or, the assistance of 2 or more helpers is required for the patient to complete the activity. If activity was not attempted, code reason: 7-Patient Refused. 9-Not Applicable-not attempted and the patient did not perform the activity before the current illness, exacerbation or injury. 10-Not Attempted due to Environmental Limitations-(lack of equipment, weather restraints, etc.). 88-Not Attempted due to Medical Conditions or Safety Concerns. ADL PLOF Comments Pt reported that he has been able to take care of himself, including light cooking but he does take one meal a day at [facility]. He has help with laundry and housecleaning but manages all other ADLs. He still drives and reported that he eats out a lot. 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 Self Care: Independent Functional Cognition: Independent DME/Equipment: Grab Bars, Shower OT Current Status Subjective Pt seen in room, up in w/c, agreeable to OT. Pain reported 0/10 Appearance Alert, cooperative Current Glasses/Contacts: Yes Hearing Aids: Yes Dentures/Partials: No Hand Dominance: Right Upper Extremity ROM Grossly WFL bilat Upper Extremity Coordination Grossly WFL bilat Upper Extremity Sensation Pt reported no problems with sensation in bilat UEs Upper Extremity Strength Grossly 4/5 bilat ADL-Treatment Eating (QC): 88 Oral Hygiene (QC): 88 Shower/Bathe Self (QC): 88 Upper Body Dressing (QC): 88 Lower Body Dressing (QC): 88 On/Off Footwear (QC): 88 Toileting Hygiene (QC): 88 Education OT Patient Education: Purpose of tx/functional activities, Rehab process Teaching Recipient: Patient, Family (daughter present) Teaching Methods: Discussion Response to Teaching: Verbalize Understanding OT Short Term Goals Short Term Goals Time Frame: Jun 29, 2022 Eatin Oral hygiene: 5 Toileting hygiene: 5 Shower/bathe self: 5 Upper body dressin Lower body dressin Putting on/taking off footwear: 5 OT Plane Tender Goals Half-Way Goals Time Frame: Jul 06, 2022 Acute change in mental status: 0 Inattention: 0 Disorganized thinkin Altered level of consciousness: 0 Eating (QC): 6 Oral Hygiene (QC): 6 Toileting Hygiene (QC): 6 Shower/Bathe Self (QC): 6 Upper Body Dressing (QC): 6 Lower Body Dressing (QC): 6 On/Off Footwear (QC): 6 1=Demonstrate adherence to instructed precautions during ADL tasks. 2=Patient will verbalize/demonstrate understanding of assistive devices/modifications for ADL. 3=Patient will improve strength/tolerance for activity to enable patient to perform ADL's. OT Education/Plan Problem List/Assessment Assessment: Decreased Activ Tolerance, Decreased UE Strength, Impaired Funct Balance, Impaired Self-Care Skills Pt would benefit from skilled OT to increase his independence with basic self care and decrease caregiver burden. Discharge Recommendations Plan/Recommendations: Continue POC Treatment Plan/Plan of Care Treatment,Training & Education: Yes Patient would benefit from OT for education, treatment and training to promote independence in ADL's, mobility, safety and/or upper extremity function for ADL's. Plan of Care: ADL Retraining, Functional Mobility, Group Exercise/Act as Ind, UE Funct Exercise/Act, UE Neuromus Re-Ed/Coord, OTHER (energy conservation education) Treatment Duration: Jul 06, 2022 Frequency: At least 5 of 7 days/Wk (IRF) Estimated Hrs Per Day: 1.5 hours per day Agreement: Yes Rehab Potential: Good Time Start Time: 14:00 Stop Time: 14:10 DATE: Jun 22, 2022 Total Time Billed (hr/min): 10 Billed Treatment Time visit, 10 minutes evaluation moderate intensity RUBA COTE OT Jun 22, 2022 14:38
--- NOTE | 2022-06-22 14:54 | Speech Therapy Progress Note ---
Therapy Progress Note ST received the consultation for a cognitive linguistic evaluation. During the pre-admission screening process, the patient was not noted to have cognitive concerns raised by family, staff, or clinicians. The acute physician placed orders for PT and OT during his inpatient acute stay, the MRI did not reveal a stroke, and acute OT documented intact orientation. At this time, a formal speech pathology evaluation will not occur. Please notify speech pathology with cognitive linguistic or oropharyngeal swallowing concerns. JOIE ROSAS Jun 22, 2022 14:54
--- NOTE | 2022-06-22 15:25 | Occupational Ther Daily Note ---
OT Current Status-Daily Note Subjective Pt alert, took over care from OTR. Co-treat with PT [id number], skills of 2 clinicians required due to decrease stamina, prevent falls and increase overall mobility. PT focusing on ambulation, transfers and dynamic balance while OT focusing on ADLs, functional mobility and B UE placement during dynamic tasks. Mental Status/Objective Patient Orientation: Person, Place, Time, Situation ADL-Treatment Pt able to don upper body clothing by self in sitting after set up. Pt able to thread feet into pants by self then CGA/steadying assist to hike pants over hips, buttoning and placing belt through belt loops. After set up, pt donned doff sock by self then required LH shoe horn, uses at home, to don shoes due to bending over increases dizziness. Sitting at sink, pt completes independently. Pt has demonstrated ability to complete toilet hygiene and clothing manipulation with CGA. Therapy Code Descriptions/Definitions Functional [place] Measure: 0=Not Assessed/NA 4=Minimal Assistance 1=Total Assistance 5=Supervision or Setup 2=Maximal Assistance 6=Modified [place] 3=Moderate Assistance 7=Complete IndependenceSCALE: Activities may be completed with or without assistive devices. 0-Rghazoakwg-icxvpwy completes the activity by him/herself with no assistance from a helper. 5-Set-up or Clean-up Assistance-helper sets up or cleans up; patient completes activity. [place] assists only prior to or following the activity. 4-Supervision or Touching Assistance-helper provides verbal cues and/or touching/steadying and/or contact guard assistance as patient completes activity. Assistance may be provided throughout the activity or intermittently. 3-Partial/Moderate Assistance-helper does LESS THAN HALF the effort. [place] lifts, holds or supports trunk or limbs, but provides less than half the effort. 2-Substantial/Maximal Assistance-helper does MORE THAN HALF the effort. [place] lifts or holds trunk or limbs and provides more than half the effort. 2-Tqrjnimqp-bjsasq does ALL the effort. Patient does none of the effort to complete the activity. Or, the assistance of 2 or more helpers is required for the patient to complete the activity. If activity was not attempted, code reason: 7-Patient Refused. 9-Not Applicable-not attempted and the patient did not perform the activity before the current illness, exacerbation or injury. 10-Not Attempted due to Environmental Limitations-(lack of equipment, weather restraints, etc.). 88-Not Attempted due to Medical Conditions or Safety Concerns. Eating (QC): 6 (Pt has demonstrated ability to complete independently.) Oral Hygiene (QC): 6 Shower/Bathe Self (QC): 4 Upper Body Dressing (QC): 5 Lower Body Dressing (QC): 4 On/Off Footwear: 5 Toileting Hygiene (QC): 4 Toilet Transfer (QC): 4 Other Treatment Pt completed a variety of tasks to challenge dynamic balance while completing IADLs with CGA due to dizziness. Pt completed strengthening exercises using 3# wt for tricep and bicep while completing NuStep. After therapy, pt lying in bed with call light/phone in reach. All needs met in room. OT Short Term Goals Short Term Goals Time Frame: Jun 29, 2022 Eatin Oral hygiene: 5 Toileting hygiene: 5 Shower/bathe self: 5 Upper body dressin Lower body dressin Putting on/taking off footwear: 5 OT Boring Machine Set Up Operator Jig Goals Fdc Goals Time Frame: Jul 06, 2022 Acute change in mental status: 0 Inattention: 0 Disorganized thinkin Altered level of consciousness: 0 Eating (QC): 6 Oral Hygiene (QC): 6 Toileting Hygiene (QC): 6 Shower/Bathe Self (QC): 6 Upper Body Dressing (QC): 6 Lower Body Dressing (QC): 6 On/Off Footwear (QC): 6 1=Demonstrate adherence to instructed precautions during ADL tasks. 2=Patient will verbalize/demonstrate understanding of assistive devices/modifications for ADL. 3=Patient will improve strength/tolerance for activity to enable patient to perform ADL's. OT Education/Plan Problem List/Assessment Assessment: Decreased Activ Tolerance, Decreased UE Strength, Impaired Funct Balance, Impaired I ADL's, Impaired Self-Care Skills Pt would benefit from skilled OT to increase his independence with basic self care and decrease caregiver burden. Discharge Recommendations Plan/Recommendations: Continue POC Treatment Plan/Plan of Care Patient would benefit from OT for education, treatment and training to promote independence in ADL's, mobility, safety and/or upper extremity function for ADL's. Plan of Care: ADL Retraining, Functional Mobility, Group Exercise/Act as Ind, UE Funct Exercise/Act, UE Neuromus Re-Ed/Coord, OTHER (energy conservation education) Treatment Duration: Jul 06, 2022 Frequency: At least 5 of 7 days/Wk (IRF) Estimated Hrs Per Day: 1.5 hours per day Agreement: Yes Rehab Potential: Good Time Start Time: 14:10 Stop Time: 15:30 DATE: Jun 22, 2022 Total Time Billed (hr/min): 80 Billed Treatment Time 1 visit-FA 3 (40 min) EX 1 (10 min) ADL 2 (30 min) co-treat with PT 80 min SHYAM BARRIOS Jun 22, 2022 15:25
--- NOTE | 2022-06-22 15:32 | Physical Therapy Evaluation ---
PT Evaluation-General Medical Diagnosis Admission Date Jun 22, 2022 at 13:58 Medical Diagnosis: vertigo Onset Date: Jun 21, 2022 Therapy Diagnosis Therapy Diagnosis: impaired mobility, balance Height/Weight Height (Feet): 5 Height (Inches): 9.50 Weight (Pounds): 172 Weight (Ounces): 0.0 Precautions Precautions/Isolations: Fall Prevention, Standard Precautions Referral Physician: Virginia George DO Reason for Referral: Evaluation/Treatment Medical History Pertinent Medical History: Arthritis Reviewed History: Yes Social History Home: Assisted Living Current Living Status: Alone Entry Into Home: Level Entry Prior Prior Level of Function SCALE: Activities may be completed with or without assistive devices. 2-Xonspigicr-asywnzm completes the activity by him/herself with no assistance f rom a helper. 5-Set-up or Clean-up Assistance-helper sets up or cleans up; patient completes activity. [place] assists only prior to or following the activity. 4-Supervision or Touching Assistance-helper provides verbal cues and/or touching/steadying and/or contact guard assistance as patient completes activity. Assistance may be provided throughout the activity or intermittently. 3-Partial/Moderate Assistance-helper does LESS THAN HALF the effort. [place] lifts, holds or supports trunk or limbs, but provides less than half the effort. 2-Substantial/Maximal Assistance-helper does MORE THAN HALF the effort. [place] lifts or holds trunk or limbs and provides more than half the effort. 5-Gqqvbvgwr-zgdjqs does ALL the effort. Patient does none of the effort to complete the activity. Or, the assistance of 2 or more helpers is required for the patient to complete the activity. If activity was not attempted, code reason: 7-Patient Refused. 9-Not Applicable-not attempted and the patient did not perform the activity before the current illness, exacerbation or injury. 10-Not Attempted due to Environmental Limitations-(lack of equipment, weather restraints, etc.). 88-Not Attempted due to Medical Conditions or Safety Concerns. Bed Mobility: 6 Transfers (B,C,W/C): 6 Gait: 6 Stairs: 6 Indoor Mobility (Ambulation): Independent Stairs: Independent PT Evaluation-Current Subjective Patient in bed pre tx, agrees to PT, has no complaints of pain, just dizziness. Pain Section J - Health Conditions 1. Rarely or not at all 2. Occasionally 3. Frequently 4. Almost constantly 8. Unable to answer Pain Effect on Sleep: 1 Pain Interference with Therapy: 1 Pain Interference w/Day-to-Day: 1 Pt/Family Goals improve dizziness Objective Patient Orientation: Person, Place, Situation ROM/Strength ROM Lower Extremities WNL Strength Lower Extremities LLE (hip flexion 3+/5, knee flexion 5/5, knee extension 5/5, dorsiflexion 5/5), RLE (hip flexion 3+/5, knee flexion 5/5, knee extension 5/5, dorsiflexion 5/5) Sensory Vision: Wears Glasses Hearing: Hearing Aid/Aides Hand Dominance: Right Sensation Right Lower Extremit: Impaired Sensation Left Lower Extremity: Impaired Transfers Roll Left & Right (QC): 6 Sit to Lying (QC): 6 Lying to Sitting/Side of Bed(Q: 6 Sit to Stand (QC): 4 Chair/Hje-ce-Vntjv Xfer(QC): 4 Toilet Transfer (QC): 4 Car Transfer (QC): 4 Patient performs rolling and supine <-> sit with independence, sit <-> stand and transfers CGA, car transfer CGA. Occasional cues for positioning. Gait Walk 10 feet (QC): 4 Walk 50 ft with 2 Turns(QC): 4 Walk 150 ft (QC): 4 Walking 10ft/uneven surface-QC: 4 Distance: 200', 120' Gait Assistive Device: FWW Comments/Gait Description Patient can ambulate 200' with a rolling walker with CGA (including 50' with at least 2 turns of 90 degrees and 10' over an uneven surface), patient needs steadying assist Wheelchair Training Wheel 50 ft with 2 turns (QC): 9 Wheel 150 ft (QC): 9 Stairs #of Steps: 4 1 Step (curb) (QC): 4 4 Steps (QC): 4 12 Steps (QC): 88 Patient can go up and down 4 steps using 2 handrails with CGA Balance Sitting Static: Fair Sitting Dynamic: Fair Standing Static: Poor Standing Dynamic: Poor Picking up an Object (QC): 4 (CGA using a confidential investigator) Treatment Patient also performed standing reaching activities and cone finding (balance training). PT performed bed mobility and transfers, ambulation, stair training, balance training, OT performed dressing, balance training, UE positioning and safety during activity. Assessment/Needs Patient in bed post tx with nurse call, phone, tray, all needs met. Patient has impaired mobility and balance. He does need steadying assist during transfers and ambulation. Rehab Potential: Fair PT Assisted Goals Assisted Goals PT Assisted Goals Time Frame: Jul 06, 2022 Roll Left to Right (QC): 6 Sit to Lying (QC): 6 Lying-Sitting on Side/Bed(QC): 6 Sit to Stand (QC): 6 Chair/Nfc-ba-Tucja Xfer(QC): 6 Toilet/Commode Transfer (QC): 6 Car Transfer (QC): 6 Does the Patient Walk: Yes Walk 10 feet (QC): 6 Walk 10ft-Uneven Surface(QC): 6 Walk 50ft with 2 Turns (QC): 6 Walk 150 ft (QC): 6 Wheel 50 feet with 2 turns (QC: 9 Wheel 150 feet: 9 1 Step (curb) (QC): 6 4 Steps (QC): 6 12 Steps (QC): 6 Picking up an Object (QC): 6 PT Plan Problem List Problem List: Activity Tolerance, Functional Strength, Safety, Balance, Gait, Transfer, Bed Mobility, ROM Treatment/Plan Treatment Plan: Continue Plan of Care Treatment Plan: Bed Mobility, Education, Functional Activity Jason, Functional Strength, Group Therapy, Gait, Safety, Therapeutic Exercise, Transfers Treatment Duration: Jul 06, 2022 Frequency: At least 5 of 7 days/Wk (IRF) Estimated Hrs Per Day: 1.5 hours per day Patient and/or Family Agrees t: Yes Safety Risks/Education Patient Education: Gait Training, Transfer Techniques, Steps, Correct Po sitioning, Safety Issues Teaching Recipient: Patient Teaching Methods: Demonstration, Discussion Response to Teaching: Reinforcement Needed Discharge Recommendations Plan Patient will perform bed mobility and transfer training, balance and endurance training, functional strengthening, stair training, gait training, and education, to improve functional mobility and independence at home. Therapy Discharge Recommendati: Home & Family Time Time In: 1350 Time Out: 1530 DATE: Jun 22, 2022 Total Billed Treatment Time: 90 Total Billed Treatment 1 visit EVL 10' EX 15' FA 65' PT eval from [id number], OT eval from [id number], co-treat from [id number] DARRELL NGUYEN PT Jun 22, 2022 15:32
--- NOTE | 2022-06-22 16:17 | IRF PAI BIMS ---
BIMS CAM BIMS Expression of Ideas and Wants: Without Difficulty Understanding Verbal Content: Understands Brief Interview/Mental Status: Yes IRF ROXANA BIMS: IRF ROXANA BIMS Response (Comments) Value Repitition of Three Words Three 3 Recalls Socks Yes, No Cue Required 2 Recalls Blue Yes, No Cue Required 2 Recalls Bed Yes, No Cue Required 2 Year Correct 3 Month Accurate Within 5 Days 2 Day Correct 1 Total 15 Patient Normally Able to Recal: Current Session, Location of own room, Staff Names and faces, That he/she in a hsp Should Staff Asses. Mental St.: No CAM Mental Status Change/Baseline: 0 Inattention: 0 Disorganized thinkin SHYAM BARRIOS Jun 22, 2022 16:17
[2022-06-22 16:24] VITALS: BP_SYST 141; BP_SYST 145; BP_SYST 148; BP_DIAS 67; BP_DIAS 70; BP_DIAS 76
--- NOTE | 2022-06-22 17:35 | PM&R Post Admission Assessment ---
PM&R HP Date of Visit: Jun 22, 2022 Time of Visit: 14:00 History of Present Illness CC: Vertigo with falls HPI: This is an 87yoWM clinic patient of Dr Blair who has a h/o HLP and occasional vertigo who presented to the ARU following a severe case of vertigo. MRI was completed to r/o CVA and it was normal. Daughter is at bedside. PT OT will focus on regaining function with vertigo exercises and the use of AD in order to prevent falls. PLOF is independent and CLOF is use of AD with slow gait. Checked meds and labs. ER HPI: This 87-year-old gentleman presents to the emergency room with complaints of vertigo type dizziness and vomiting that started this morning shortly after getting up. He has significant nystagmus with rightward gaze. He describes no other focal neurologic deficits. His dizziness was disabling and he was not able to walk independently this morning. He arrives via EMS. He had a just been up to use the restroom and have a bowel movement when the symptoms started. Nausea did not resolve with Zofran administered by EMS. Patient reports the vertigo is better with his eyes closed but it does not fatigue when his head is still. He has had prior episodes of vertigo but not to this extent. He also complains of feeling generally weak. He has not eaten in about 24 hours. 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 His primary care provider is Dr. Blair. Past Kmyhtlx-Khahso-Htcwbe Hx Past Med/Social Hx: Reviewed Nursing Past Med/Soc Hx, Reviewed and Corrections made Patient Social History Marrital Status: single Employed/Student: retired Alcohol Use: Denies Use Smoking Status: Former Smoker 2nd Hand Smoke Exposure: No Recent Hopitalizations: No Immunizations Up To Date Date of Pneumonia Vaccine: Jan 02, 2018 Date of Influenza Vaccine: Jan 22, 2022 Seasonal Allergies Seasonal Allergies: No Past Medical History Surgeries: Abdominal, Eye Surgery, Orthopedic, Prostatectomy Cardiac: High Cholesterol Sexually Transmitted Disease: No HIV/AIDS: No Genitourinary: Prostate Problems Musculoskeletal: Arthritis Loss of Vision: Denies Hearing Impairment: Denies Cancer: Prostate, Colon Did You Recieve Any Treatments: Yes What Type of Treatment Did You: Chemotherapy, Radiation, Surgical Intervention History of Blood Disorders: No Adverse Reaction to Blood Boyer: No (N/A) Prior Level of Function Bed Mobility: 6 Transfers: 6 Gait: 6 Stairs: 6 Indoor Mobility (Ambulation): Independent Stairs: Independent Self Care: Independent Functional Cognition: Independent 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 Current Level of Fuctioning Roll Left to Right: 6 Sit to Lyin Lying to Sitting/Side of Bed: 6 Sit to Stand: 4 Chair/Fun-lr-Pkagg Xfer: 4 Car Transfer: 4 Walk 10 feet: 4 Walk 50 ft with 2 Turns: 4 Walk 150 ft: 4 Walking 10ft on uneven surface: 4 Gait Assistive Device: FWW Wheel 50 ft with 2 turns: 9 Wheel 150 ft: 9 #of Steps: 4 1 Step (curb): 4 4 Steps: 4 12 Steps: 88 Picking up an Object: 4 (CGA using a director of channel marketing) Eatin (Pt has demonstrated ability to complete independently.) Oral Hygiene: 6 Shower/Bathe Self: 4 Upper Body Dressin Lower Body Dressin On/Off Footwear: 5 Toileting Hygiene: 4 Toilet Transfer: 4 PM&R Allergy/Meds/Data Review Allergies Coded Allergies: codeine (Verified Adverse Reaction, Intermediate, CONFUSION, 11/10/18) Home Medications Scheduled Cephalexin (Cephalexin), 500 MG PO TID Simvastatin (Simvastatin), 20 MG PO Q72H @HS, (Reported) Current Medications Current Medications Reviewed Review of Systems Constitutional: see HPI, malaise, weakness EENTM: no symptoms reported Respiratory: no symptoms reported Cardiovascular: no symptoms reported Gastrointestinal: nausea Genitourinary: no symptoms reported Musculoskeletal: back pain, joint pain Skin: no symptoms reported Psychiatric/Neurological: Weakness All Other Systems Reviewed Negative Unless Noted: Yes Physical Exam Physical Exam Vital Signs Vital Signs - First Documented 06/22/22 14:00 Temp 35.7 Pulse 94 Resp 18 B/P (MAP) 165/79 (107) Pulse Ox 98 O2 Delivery Room Air Capillary Refill : Height, Weight, BMI Height: 5'9.50" Weight: 172lbs. 0.0oz. 78.365708wy; 24.40 BMI Method: General Appearance: No Apparent Distress, WD/WN, Chronically ill, Thin Eyes: Bilateral Eye Normal Inspection, Bilateral Eye PERRL HEENT: PERRL/EOMI, Normal ENT Inspection, Pharynx Normal Neck: Full Range of Motion, Normal Inspection, Non Tender, Supple, Carotid Bruit Respiratory: Chest Non Tender, Lungs Clear, Normal Breath Sounds, No Accessory Muscle Use, No Respiratory Distress Cardiovascular: Regular Rate, Rhythm, No Edema, No Gallop, No JVD, No Murmur, Normal Peripheral Pulses Gastrointestinal: Normal Bowel Sounds, No Organomegaly, No Pulsatile Mass, Non Tender, Soft Back: Normal Inspection, No CVA Tenderness, No Vertebral Tenderness Extremity: Normal Capillary Refill, Normal Inspection, Normal Range of Motion, Non Tender, No Calf Tenderness, No Pedal Edema Neurologic/Psychiatric: Alert, Oriented x3, Normal Mood/Affect, aerospace mechanic II-XII Norm as Tested, Abnormal Gait, Motor Weakness (generalized weakness ) Skin: Normal Color, Warm/Dry Lymphatic: No Adenopathy PM&R Medical Assessment & Plan REHAB/MEDICAL ASSESSMENT AND PLAN: REHAB IMPAIRMENT GROUP: Debility from vertigo ETIOLOGIC DIAGNOSIS: Debility from vertigo The comorbidities that impact the patients function and/or functional outcome by: lives alone, fall risk, occasional vertigo, advanced age REHAB PLAN: The patient is being admitted to our comprehensive inpatient rehabilitation facility and can tolerate the intensity of service consisting of at least: 180 minutes of therapy a day, 5 out of 7 days a week Rehab treatment will consist of: PT OT will focus on regaining function with use of AD in order to prevent falls and increase strength in legs to help with ambulation The patient/family has a good understanding of our discharge process and will benefit from an interdisciplinary inpatient rehabilitation program. The patient has potential to make improvement and is in need of at least two of the following multidisciplinary therapies including but not limited to physical, occupational, speech, and prosthetics and orthotics. Additionally the patient will need services from respiratory, nutritional services, wound care, psychology, etc. (Customize this to each patient). Given the patients complex condition and risk of further medical complications, rehabilitation services cannot be safely or effectively provided at a lower level of care such as a residential facility. BARRIERS TO DISCHARGE: Lives alone ESTIMATED LOS: 5 days DISPOSITION: Home RELEVANT CHANGES SINCE PREADMISSION SCREENING: I have compared the patients medical and functional status at the time of the preadmission screening and there are: no changes PROGNOSIS: Good REHABILITATION GOALS: 1. PT OT will focus on regaining function with use of AD in order to prevent falls and increase strength in legs to help with ambulation All the above goals were reviewed with the patient and he/she is in agreement. By signing this document, I acknowledge that I have personally performed a full physical examination on this patient within 24 hours of admission to this inpatient rehabilitation facility and have determined the patient to be able to tolerate the above course of treatment at an intensive level for a reasonable period of time. I will be completing a detailed individualized Plan of Care for this patient by day #4 of the patients stay based upon the Preadmission Screen, the Post-Admission Evaluation, and the therapy evaluations. Admission Dx/Comorbidities: (1) Vertigo Status: Acute ICD Codes: R42 - Dizziness and giddiness (2) Advanced age Status: Chronic ICD Codes: R54 - Age-related physical debility (3) Vomiting Status: Acute ICD Codes: R11.10 - Vomiting, unspecified (4) Disequilibrium Status: Acute ICD Codes: R42 - Dizziness and giddiness (5) Generalized weakness Status: Acute ICD Codes: R53.1 - Weakness Assessment/Plan Assessment and Plan Assess & Plan/Chief Complaint Assessment: Debility from incapacitating vertigo HLP Advanced age Nausea Colon cancer hx Plan: Home meds Monitor for pain and nausea PT OT TEMITOPE MOYA DO Jun 22, 2022 17:35
[2022-06-22 19:50] VITALS: BP 138/64
[2022-06-22] MEDS: polyethylene glycoL POWDER 17 GM (MIRALAX) PACK PO SCH (21:00)
[2022-06-22] MEDS: SENNA W/DOCUSATE (SENOKOT S) TABLET PO SCH (21:00)
[2022-06-22] MEDS ORDERED: CEPHALEXIN 250 MG (KEFLEX) CAP PO SCH (21:00)
[2022-06-22] MEDS: AtorvaSTATin TABLET 10 MG TABLET PO SCH (21:00)
[2022-06-22] MEDS: DOCUSATE SODIUM 100 MG (COLACE) CAP PO SCH (21:00)
[2022-06-23 04:58] LABS: BASOPHILS % (AUTO) 0 % (0-10); EOSINOPHILS # (AUTO) 0.2 10^3/uL (0.0-0.3); EOSINOPHILS % (AUTO) 3 % (0-10); HEMATOCRIT 30 % (40-54); HEMOGLOBIN 9.9 g/dL (13.3-17.7); LYMPHOCYTES # (AUTO) 1.5 10^3/uL (1.0-4.0); LYMPHOCYTES % (AUTO) 26 % (12-44); MEAN CORPUSCULAR HEMOGLOBIN 31 pg (25-34); MEAN CORPUSCULAR HGB CONC 33 g/dL (32-36); MEAN CORPUSCULAR VOLUME 93 fL (80-99); MEAN PLATELET VOLUME 9.3 fL (9.0-12.2); MONOCYTES # (AUTO) 0.4 10^3/uL (0.0-1.0); MONOCYTES % (AUTO) 7 % (0-12); NEUTROPHILS # (AUTO) 3.7 10^3/uL (1.8-7.8); NEUTROPHILS % (AUTO) 63 % (42-75); PLATELET COUNT 147 10^3/uL (130-400); WHITE BLOOD COUNT 5.8 10^3/uL (4.3-11.0)
[2022-06-23 05:15] LABS: ALBUMIN 3.2 GM/DL (3.2-4.5); BILIRUBIN,TOTAL 0.4 MG/DL (0.1-1.0); CALCIUM 8.9 MG/DL (8.5-10.1); CREATININE SERUM 1.19 MG/DL (0.60-1.30); POTASSIUM 3.9 MMOL/L (3.6-5.0); TOTAL PROTEIN 5.7 GM/DL (6.4-8.2)
[2022-06-23 07:30] VITALS: BP 120/72
--- NOTE | 2022-06-23 07:41 | Individualized Plan of Care ---
Individualized Plan of Care Rehab Nursing IPOC Order Admission Date Jun 22, 2022 at 13:58 Current Orders Orders Admission Order(Inpt,Obs,Sdc) (06/22/22 13:43) Vital Signs: Per Unit Policy ( 08,16,00 (06/22/22 13:43) Gigi Desai (06/22/22 13:43) Sequential Compression Device (06/22/22 13:43) Editor Index-Inpt Rehab Con (06/22/22 13:43) Rehab Nursing Orders-Ipoc (06/22/22 13:43) Physical Therapy Rehab Orders (06/22/22 13:43) Occupational Therapy Rehab Ord (06/22/22 13:43) Speech Therapy Rehab Orders (06/22/22 13:43) Cbc With Automated Diff (06/23/22 06:00) Comprehensive Metabolic Panel (06/23/22 06:00) Precautions (Aru) (06/22/22 13:43) Weekly Weight WEEK (06/22/22 13:43) Rehab-Intensity Of Therapy (06/22/22 13:43) Initiate Admission Nursing Pro .admission (06/22/22 13:43) Alprazolam Tablet (Xanax Tablet) (06/22/22 13:45) Calcium Carbonate Chew Tablet (Antacid C (06/22/22 13:45) Diphenhydramine Tablet (Benadryl Tablet) (06/22/22 13:45) Docusate Sodium Capsule (Colace Capsule) (06/22/22 21:00) Docusate Sodium Capsule (Colace Capsule) (06/22/22 13:45) Bisacodyl Suppository (Dulcolax Supposit (06/22/22 13:45) Lactulose Oral Solution (Enulose Oral So (06/22/22 13:45) Na Phos/Na Biphos Enema (Fleet Enema Jesus (06/22/22 13:45) Loperamide Tablet (Imodium Tablet) (06/22/22 13:45) Melatonin Tablet (Melatonin Tablet) (06/22/22 13:45) Polyethylene Glycol Powder Pkt (Miralax (06/22/22 21:00) Ondansetron Oral Dissolve Tab (Zofran (06/22/22 13:45) Senna S Tablet (Senokot S Tablet) (06/22/22 21:00) Acetaminophen Tablet/Caplet (Tylenol T (06/22/22 13:45) Initiate Admission Nursing Pro .admission (06/22/22 13:43) Admission Arrival Bed Request (06/22/22 13:58) General/Regular (06/22/22 Dinner) Atorvastatin Tablet (Lipitor Tablet) (06/22/22 21:00) Code/Resuscitation (06/22/22 18:44) Code/Resuscitation (06/22/22 18:50) Enoxaparin Injection (Lovenox Injection) (06/23/22 09:00) Patient Visit (06/22/22 ) Exercise Therap, Ea 15 Min (06/22/22 ) Functional Activities, Ea 15 (06/22/22 ) Pt Eval Low Complexity (06/22/22 ) Patient Visit (06/23/22 ) Gait Training, Ea 15 Min (06/23/22 ) Rehab Nursing Orders: Ongoing Assess. of Cognitive Status, Ongoing Assess. of Function Status, Bladder Management, Bladder Scan, Bladder Training, Bowel Management, Bowel Training, Disease Management & Educaiton, DVT Prophylaxis, Fall Prevention, Fluid/Electrolyte/Nutrition Mgmt, Infection Prevention, Medication Management & Education, Management of Risks & Complications, Management of Skin Intergrity, Nutrition Management, Pain Management, Patient/Family Support, Safety Management Intensity of Therapy to be met Patient to be seen: Min.3h per day/5 of 7d PT IPOC Problem List: Activity Tolerance, Functional Strength, Safety, Balance, Gait, Transfer, Bed Mobility, ROM Treatment Plan: Continue Plan of Care Bed Mobility, Education, Functional Activity Jason, Functional Strength, Group Therapy, Gait, Safety, Therapeutic Exercise, Transfers Treatment Duration: Jul 06, 2022 Frequency: At least 5 of 7 days/Wk (IRF) Estimated Hrs Per Day: 1.5 hours per day OT IPOC Problems: Decreased Activ Tolerance, Decreased UE Strength, Impaired Funct Balance, Impaired I ADL's, Impaired Self-Care Skills OT Treatment, Training and Edu: Yes OT Problems Pt would benefit from skilled OT to increase his independence with basic self care and decrease caregiver burden. Plan of Care: ADL Retraining, Functional Mobility, Group Exercise/Act as Ind, UE Funct Exercise/Act, UE Neuromus Re-Ed/Coord, OTHER (energy conservation education) Treatment Duration: Jul 06, 2022 Frequency: At least 5 of 7 days/Wk (IRF) Estimated Hrs Per Day: 1.[address] IPOC Speech Therapy Treatment Plan: Discontinue ST Treatment Duration: Jun 22, 2022 Frequency: Modified Program (IRF) Estimated Hrs Per Day: Other Editor Index/Case Mgmt Editor Index/Case Managemen: Discharge Planning Dietitian/Microelectronics Engineer Dietitian/Microelectronics Engineer to monitor nutritional status and make changes and/or recommendations as needed and work with speech pathology on dietary upgrades as the occur. Physician IPOC Medical Issues being managed closely and that require the 24 hour availability of a physician: Recent severe vertigo presenting similar to a CVA will require close monitoring for fall risk and therapy will work on vestibular exercises to help return to baseline function Medical Issues: Bowel/Bladder Function, DVT Prophylaxis, Falls Precautions, Fluid/Electrolyte/Nutrition Balance, Infection Protection, Pain Management Brief Synthesis of Preadmission Screen, Post-Admission Evaluation, and Therapy Evaluations: PT OT will focus on regaining function with the use of walker to prevent falls and help with decrease need for assistance at home where he lives alone Medical Prognosis: Good Anticipated Length of Stay: 6 days TEMITOPE MOYA DO Jun 23, 2022 07:41
--- NOTE | 2022-06-23 07:41 | PM&R Progress Note ---
Subjective HPI/CC On Admission Date Seen by Provider: Jun 23, 2022 Time Seen by Provider: 12:00 Subjective/Events-last exam 06/23/2022: No major issues Still a bit light headiness when he ambulates No falls Eating well BM regimen maintained Review of Systems General: Fatigue, Malaise Objective Exam Vital Signs Vital Signs Date Time Temp Pulse Resp B/P (MAP) Pulse Ox O2 Delivery O2 Flow Rate FiO2 06/23/22 20:40 Room Air 06/23/22 19:43 36.0 91 20 130/73 (92) 99 Capillary Refill : General Appearance: No Apparent Distress, WD/WN, Chronically ill, Thin HEENT: PERRL/EOMI, Normal ENT Inspection, Pharynx Normal Neck: Full Range of Motion, Normal Inspection, Non Tender, Supple, Carotid Bruit Respiratory: Chest Non Tender, Lungs Clear, Normal Breath Sounds, No Accessory Muscle Use, No Respiratory Distress Cardiovascular: Regular Rate, Rhythm, No Edema, No Gallop, No JVD, No Murmur, Normal Peripheral Pulses Gastrointestinal: Normal Bowel Sounds, No Organomegaly, No Pulsatile Mass, Non Tender, Soft Back: Normal Inspection, No CVA Tenderness, No Vertebral Tenderness Extremity: Normal Capillary Refill, Normal Inspection, Normal Range of Motion, Non Tender, No Calf Tenderness, No Pedal Edema Neurologic/Psychiatric: Alert, Oriented x3, Normal Mood/Affect, director of sales support II-XII Norm as Tested, Abnormal Gait, Motor Weakness (generalized weakness ) Skin: Normal Color, Warm/Dry Lymphatic: No Adenopathy Results/Procedures Lab Patient resulted labs reviewed. FIM Transfers Therapy Code Descriptions/Definitions Functional [place] Measure: 0=Not Assessed/NA 4=Minimal Assistance 1=Total Assistance 5=Supervision or Setup 2=Maximal Assistance 6=Modified [place] 3=Moderate Assistance 7=Complete IndependenceSCALE: Activities may be completed with or without assistive devices. 4-Giopclvjiu-jmkimdi completes the activity by him/herself with no assistance from a helper. 5-Set-up or Clean-up Assistance-helper sets up or cleans up; patient completes activity. [place] assists only prior to or following the activity. 4-Supervision or Touching Assistance-helper provides verbal cues and/or to uching/steadying and/or contact guard assistance as patient completes activity. Assistance may be provided throughout the activity or intermittently. 3-Partial/Moderate Assistance-helper does LESS THAN HALF the effort. [place] lifts, holds or supports trunk or limbs, but provides less than half the effort. 2-Substantial/Maximal Assistance-helper does MORE THAN HALF the effort. [place] lifts or holds trunk or limbs and provides more than half the effort. 5-Horfgsvwh-cbvcas does ALL the effort. Patient does none of the effort to complete the activity. Or, the assistance of 2 or more helpers is required for the patient to complete the activity. If activity was not attempted, code reason: 7-Patient Refused. 9-Not Applicable-not attempted and the patient did not perform the activity before the current illness, exacerbation or injury. 10-Not Attempted due to Environmental Limitations-(lack of equipment, weather restraints, etc.). 88-Not Attempted due to Medical Conditions or Safety Concerns. Roll Left to Right (QC): 6 Sit to Lying (QC): 6 Sit to Stand (QC): 4 Chair/Flk-wx-Qqzbw Xfer(QC): 4 Car Transfer (QC): 4 Gait Training Walk 10 feet (QC): 4 Walk 50 ft with 2 Turns(QC): 4 Walk 150 ft (QC): 4 Walking 10ft/uneven surface-QC: 4 Gait Assistive Device: FWW Wheelchair Training Wheel 50 ft with 2 turns (QC): 9 Wheel 150 ft (QC): 9 Stair Training #of Steps: 4 1 Step (curb) (QC): 4 4 Steps (QC): 4 12 Steps (QC): 88 Balance Picking up an Object (QC): 4 (CGA using a gas line installer supervisor) ADL-Treatment Eating (QC): 6 (Pt has demonstrated ability to complete independently.) Oral Hygiene (QC): 6 Shower/Bathe Self (QC): 4 Upper Body Dressing (QC): 5 Lower Body Dressing (QC): 4 On/Off Footwear (QC): 5 Toileting Hygiene (QC): 4 Toilet Transfer (QC): 4 Assessment/Plan Assessment and Plan Assess & Plan/Chief Complaint Assessment: Debility from incapacitating vertigo HLP Advanced age Nausea Colon cancer hx Plan: Home meds Monitor for pain and nausea PT OT 06/23/2022: Monitor closely Fall risk (1) Vertigo Status: Acute (2) Advanced age Status: Chronic (3) Vomiting Status: Acute (4) Disequilibrium Status: Acute (5) Generalized weakness Status: Acute TEMITOPE MOYA DO Jun 23, 2022 07:41
[2022-06-23] MEDS: ENOXAPARIN 40 MG/0.4 ML (LOVENOX) SYR SC SCH (08:37)
[2022-06-23] MEDS: DOCUSATE SODIUM 100 MG (COLACE) CAP PO SCH ×2 (08:37→19:50)
[2022-06-23] MEDS: polyethylene glycoL POWDER 17 GM (MIRALAX) PACK PO SCH ×2 (08:37→21:00)
[2022-06-23] MEDS: SENNA W/DOCUSATE (SENOKOT S) TABLET PO SCH ×2 (08:38→21:00)
--- NOTE | 2022-06-23 12:58 | Physical Therapy Daily Note ---
PT Daily Note-Current Subjective Pt in bed upon arrival and agrees to PT. Says he is feeling okay today. Pain Section J - Health Conditions 1. Rarely or not at all 2. Occasionally 3. Frequently 4. Almost constantly 8. Unable to answer Pain Effect on Sleep: 1 Pain Interference with Therapy: 1 Pain Interference w/Day-to-Day: 1 Mental Status Patient Orientation: Person, Place, Time, Situation Transfers SCALE: Activities may be completed with or without assistive devices. 0-Bncackfvrm-aiilxcm completes the activity by him/herself with no assistance from a helper. 5-Set-up or Clean-up Assistance-helper sets up or cleans up; patient completes activity. [place] assists only prior to or following the activity. 4-Supervision or Touching Assistance-helper provides verbal cues and/or touching/steadying and/or contact guard assistance as patient completes activity. Assistance may be provided throughout the activity or intermittently. 3-Partial/Moderate Assistance-helper does LESS THAN HALF the effort. [place] lifts, holds or supports trunk or limbs, but provides less than half the effort. 2-Substantial/Maximal Assistance-helper does MORE THAN HALF the effort. [place] lifts or holds trunk or limbs and provides more than half the effort. 2-Ayhqjysku-wdlmxt does ALL the effort. Patient does none of the effort to complete the activity. Or, the assistance of 2 or more helpers is required for the patient to complete the activity. If activity was not attempted, code reason: 7-Patient Refused. 9-Not Applicable-not attempted and the patient did not perform the activity before the current illness, exacerbation or injury. 10-Not Attempted due to Environmental Limitations-(lack of equipment, weather restraints, etc.). 88-Not Attempted due to Medical Conditions or Safety Concerns. Sit to Stand (QC): 5 Gait Training Does the Patient Walk?: Yes Distance: 300' Walk 10 feet (QC): 5 Walk 50 ft with 2 Turns(QC): 4 Walk 150 ft (QC): 4 Gait Assistive Device: FWW pt has to pause for a brief second every time he makes a quick turn Exercises Standing: Retro gait, Side steps, Step-ups Standing Reps: 10 Treatments Pt amb from room out into sesay and then requires brief rest break. Pt then amb into therapy gym and performs standing exs in // bars. Pt then amb back to room and TRFs to BR. All needs met as PT departs. Assessment Current Status: Good Progress Pt required verbal and tactile cues in order to perform TRFs and exs correctly. Pt tolerated standing exs and ambulation well. PT Helmet Hat Brim Cutter Goals Usp Goals PT Helmet Hat Brim Cutter Goals Time Frame: Jul 06, 2022 Roll Left & Right (QC): 6 Sit to Lying (QC): 6 Lying-Sitting on Side/Bed(QC): 6 Sit to Stand (QC): 6 Chair/Bbi-wd-Ozelb Xfer(QC): 6 Toilet Transfer (QC): 6 Car Transfer (QC): 6 Does the Patient Walk: Yes Walk 10 feet (QC): 6 Walk 50ft with 2 Turns (QC): 6 Walk 150 ft (QC): 6 Walking 10ft on Uneven Surface: 6 1 Step (curb) (QC): 6 4 Steps (QC): 6 12 Steps (QC): 6 Picking up an Object (QC): 6 Wheel 50 feet with 2 turns (QC: 9 Wheel 150 feet: 9 PT Plan Problem List Problem List: Activity Tolerance, Functional Strength, Safety Treatment/Plan Treatment Plan: Continue Plan of Care Treatment Plan: Bed Mobility, Education, Functional Activity Jason, Functional Strength, Group Therapy, Gait, Safety, Therapeutic Exercise, Transfers Treatment Duration: Jul 06, 2022 Frequency: At least 5 of 7 days/Wk (IRF) Estimated Hrs Per Day: 1.5 hours per day Patient and/or Family Agrees t: Yes Safety Risks/Education Patient Education: Gait Training, Transfer Techniques Teaching Recipient: Patient Teaching Methods: Discussion Response to Teaching: Return Demonstration Time Time In: 1100 Time Out: 1115 DATE: Jun 23, 2022 Total Billed Treatment Time: 15 Total Billed Treatment 1, GT 15' CHRISTIANO DE OLIVEIRA MAINTENANCE SHOP MANAGER Jun 23, 2022 12:58
[2022-06-23 19:43] VITALS: BP 130/73
--- NOTE | 2022-06-24 07:19 | PM&R Progress Note ---
Subjective HPI/CC On Admission Date Seen by Provider: Jun 24, 2022 Time Seen by Provider: 12:30 Subjective/Events-last exam 06/24/2022: No major issues No pain reported Dizziness still an issue but slowly improved 06/23/2022: No major issues Still a bit light headiness when he ambulates No falls Eating well BM regimen maintained Review of Systems General: Fatigue, Malaise Objective Exam Vital Signs Vital Signs Date Time Temp Pulse Resp B/P (MAP) Pulse Ox O2 Delivery O2 Flow Rate FiO2 06/24/22 08:56 86 18 134/62 (86) 96 Room Air 06/24/22 07:30 36.4 Capillary Refill : General Appearance: No Apparent Distress, WD/WN, Chronically ill, Thin HEENT: PERRL/EOMI, Normal ENT Inspection, Pharynx Normal Neck: Full Range of Motion, Normal Inspection, Non Tender, Supple, Carotid Bruit Respiratory: Chest Non Tender, Lungs Clear, Normal Breath Sounds, No Accessory Muscle Use, No Respiratory Distress Cardiovascular: Regular Rate, Rhythm, No Edema, No Gallop, No JVD, No Murmur, Normal Peripheral Pulses Gastrointestinal: Normal Bowel Sounds, No Organomegaly, No Pulsatile Mass, Non Tender, Soft Back: Normal Inspection, No CVA Tenderness, No Vertebral Tenderness Extremity: Normal Capillary Refill, Normal Inspection, Normal Range of Motion, Non Tender, No Calf Tenderness, No Pedal Edema Neurologic/Psychiatric: Alert, Oriented x3, Normal Mood/Affect, it telecom technician II-XII Norm as Tested, Abnormal Gait, Motor Weakness (generalized weakness ) Skin: Normal Color, Warm/Dry Lymphatic: No Adenopathy Results/Procedures Lab Patient resulted labs reviewed. FIM Transfers Therapy Code Descriptions/Definitions Functional [place] Measure: 0=Not Assessed/NA 4=Minimal Assistance 1=Total Assistance 5=Supervision or Setup 2=Maximal Assistance 6=Modified [place] 3=Moderate Assistance 7=Complete IndependenceSCALE: Activities may be completed with or without assistive devices. 6-Rsrqwvorog-lakgwqi completes the activity by him/herself with no assistance from a helper. 5-Set-up or Clean-up Assistance-helper sets up or cleans up; patient completes activity. [place] assists only prior to or following the activity. 4-Supervision or Touching Assistance-helper provides verbal cues and/or touching/steadying and/or contact guard assistance as patient completes activity. Assistance may be provided throughout the activity or intermittently. 3-Partial/Moderate Assistance-helper does LESS THAN HALF the effort. [place] lifts, holds or supports trunk or limbs, but provides less than half the effort. 2-Substantial/Maximal Assistance-helper does MORE THAN HALF the effort. [place] lifts or holds trunk or limbs and provides more than half the effort. 5-Xkgmcetcm-ymtgun does ALL the effort. Patient does none of the effort to complete the activity. Or, the assistance of 2 or more helpers is required for the patient to complete the activity. If activity was not attempted, code reason: 7-Patient Refused. 9-Not Applicable-not attempted and the patient did not perform the activity before the current illness, exacerbation or injury. 10-Not Attempted due to Environmental Limitations-(lack of equipment, weather restraints, etc.). 88-Not Attempted due to Medical Conditions or Safety Concerns. Roll Left to Right (QC): 6 Sit to Lying (QC): 6 Sit to Stand (QC): 5 Chair/Pnw-kp-Uhsgl Xfer(QC): 4 Car Transfer (QC): 4 Gait Training Does the Patient Walk?: Yes Distance: 300' Walk 10 feet (QC): 5 Walk 50 ft with 2 Turns(QC): 4 Walk 150 ft (QC): 4 Walking 10ft/uneven surface-QC: 4 Gait Assistive Device: FWW Wheelchair Training Wheel 50 ft with 2 turns (QC): 9 Wheel 150 ft (QC): 9 Stair Training #of Steps: 4 1 Step (curb) (QC): 4 4 Steps (QC): 4 12 Steps (QC): 88 Balance Picking up an Object (QC): 4 (CGA using a lumber stacker operator) ADL-Treatment Eating (QC): 6 (Pt has demonstrated ability to complete independently.) Oral Hygiene (QC): 6 Shower/Bathe Self (QC): 4 Upper Body Dressing (QC): 5 Lower Body Dressing (QC): 4 On/Off Footwear (QC): 5 Toileting Hygiene (QC): 4 Toilet Transfer (QC): 4 Assessment/Plan Assessment and Plan Assess & Plan/Chief Complaint Assessment: Debility from incapacitating vertigo HLP Advanced age Nausea Colon cancer hx Plan: Home meds Monitor for pain and nausea PT OT 06/23/2022: Monitor closely Fall risk 06/24/2022: Monitor closely (1) Vertigo Status: Acute (2) Advanced age Status: Chronic (3) Vomiting Status: Acute (4) Disequilibrium Status: Acute (5) Generalized weakness Status: Acute TEMITOPE MOYA DO Jun 24, 2022 07:19
[2022-06-24 07:30] VITALS: BP 105/64
[2022-06-24] MEDS: ENOXAPARIN 40 MG/0.4 ML (LOVENOX) SYR SC SCH (08:46)
[2022-06-24 08:56] VITALS: BP 134/62
[2022-06-24] MEDS: DOCUSATE SODIUM 100 MG (COLACE) CAP PO SCH ×2 (09:00→19:42)
[2022-06-24] MEDS: polyethylene glycoL POWDER 17 GM (MIRALAX) PACK PO SCH ×2 (09:00→19:42)
[2022-06-24] MEDS: SENNA W/DOCUSATE (SENOKOT S) TABLET PO SCH ×2 (09:00→19:42)
[2022-06-24 19:31] VITALS: BP 135/66
[2022-06-24] MEDS: AtorvaSTATin TABLET 10 MG TABLET PO SCH (19:42)
--- NOTE | 2022-06-25 05:32 | PM&R Progress Note ---
Subjective HPI/CC On Admission Date Seen by Provider: Jun 25, 2022 Time Seen by Provider: 08:30 Subjective/Events-last exam 06/25/2022: No major issues No pain reported Dizziness improved but still present Fall risk 06/24/2022: No major issues No pain reported Dizziness still an issue but slowly improved 06/23/2022: No major issues Still a bit light headiness when he ambulates No falls Eating well BM regimen maintained Review of Systems General: Fatigue, Malaise Objective Exam Vital Signs Vital Signs Date Time Temp Pulse Resp B/P (MAP) Pulse Ox O2 Delivery O2 Flow Rate FiO2 06/25/22 20:43 36.1 89 16 125/60 (81) 98 Room Air Capillary Refill : General Appearance: No Apparent Distress, WD/WN, Chronically ill, Thin HEENT: PERRL/EOMI, Normal ENT Inspection, Pharynx Normal Neck: Full Range of Motion, Normal Inspection, Non Tender, Supple, Carotid Bruit Respiratory: Chest Non Tender, Lungs Clear, Normal Breath Sounds, No Accessory Muscle Use, No Respiratory Distress Cardiovascular: Regular Rate, Rhythm, No Edema, No Gallop, No JVD, No Murmur, Normal Peripheral Pulses Gastrointestinal: Normal Bowel Sounds, No Organomegaly, No Pulsatile Mass, Non Tender, Soft Back: Normal Inspection, No CVA Tenderness, No Vertebral Tenderness Extremity: Normal Capillary Refill, Normal Inspection, Normal Range of Motion, Non Tender, No Calf Tenderness, No Pedal Edema Neurologic/Psychiatric: Alert, Oriented x3, Normal Mood/Affect, strand and binder controller II-XII Norm as Tested, Abnormal Gait, Motor Weakness (generalized weakness ) Skin: Normal Color, Warm/Dry Lymphatic: No Adenopathy Results/Procedures Lab Patient resulted labs reviewed. FIM Transfers Therapy Code Descriptions/Definitions Functional [place] Measure: 0=Not Assessed/NA 4=Minimal Assistance 1=Total Assistance 5=Supervision or Setup 2=Maximal Assistance 6=Modified [place] 3=Moderate Assistance 7=Complete IndependenceSCALE: Activities may be completed with or without assistive devices. 7-Pumzipclvp-ldodyll completes the activity by him/herself with no assistance from a helper. 5-Set-up or Clean-up Assistance-helper sets up or cleans up; patient completes activity. [place] assists only prior to or following the activity. 4-Supervision or Touching Assistance-helper provides verbal cues and/or touching/steadying and/or contact guard assistance as patient completes activity. Assistance may be provided throughout the activity or intermittently. 3-Partial/Moderate Assistance-helper does LESS THAN HALF the effort. [place] lifts, holds or supports trunk or limbs, but provides less than half the effort. 2-Substantial/Maximal Assistance-helper does MORE THAN HALF the effort. [place] lifts or holds trunk or limbs and provides more than half the effort. 1-Ifvrfqftx-uzwlcy does ALL the effort. Patient does none of the effort to complete the activity. Or, the assistance of 2 or more helpers is required for the patient to complete the activity. If activity was not attempted, code reason: 7-Patient Refused. 9-Not Applicable-not attempted and the patient did not perform the activity before the current illness, exacerbation or injury. 10-Not Attempted due to Environmental Limitations-(lack of equipment, weather restraints, etc.). 88-Not Attempted due to Medical Conditions or Safety Concerns. Roll Left to Right (QC): 6 Sit to Lying (QC): 6 Sit to Stand (QC): 5 Chair/Snk-vy-Ahhqr Xfer(QC): 4 Car Transfer (QC): 4 Gait Training Does the Patient Walk?: Yes Distance: 300' Walk 10 feet (QC): 5 Walk 50 ft with 2 Turns(QC): 4 Walk 150 ft (QC): 4 Walking 10ft/uneven surface-QC: 4 Gait Assistive Device: FWW Wheelchair Training Wheel 50 ft with 2 turns (QC): 9 Wheel 150 ft (QC): 9 Stair Training #of Steps: 4 1 Step (curb) (QC): 4 4 Steps (QC): 4 12 Steps (QC): 88 Balance Picking up an Object (QC): 4 (CGA using a manager process excellence) ADL-Treatment Eating (QC): 6 (Pt has demonstrated ability to complete independently.) Oral Hygiene (QC): 6 Shower/Bathe Self (QC): 4 Upper Body Dressing (QC): 5 Lower Body Dressing (QC): 4 On/Off Footwear (QC): 5 Toileting Hygiene (QC): 4 Toilet Transfer (QC): 4 Assessment/Plan Assessment and Plan Assess & Plan/Chief Complaint Assessment: Debility from incapacitating vertigo HLP Advanced age Nausea Colon cancer hx Plan: Home meds Monitor for pain and nausea PT OT 06/23/2022: Monitor closely Fall risk 06/24/2022: Monitor closely 06/25/2022: No major issues (1) Vertigo Status: Acute (2) Advanced age Status: Chronic (3) Vomiting Status: Acute (4) Disequilibrium Status: Acute (5) Generalized weakness Status: Acute TEMITOPE MOYA DO Jun 25, 2022 05:32
[2022-06-25 07:54] VITALS: BP 110/68
[2022-06-25] MEDS: SENNA W/DOCUSATE (SENOKOT S) TABLET PO SCH ×3 (07:59→20:52)
[2022-06-25] MEDS: DOCUSATE SODIUM 100 MG (COLACE) CAP PO SCH ×3 (07:59→20:52)
[2022-06-25] MEDS: polyethylene glycoL POWDER 17 GM (MIRALAX) PACK PO SCH ×2 (07:59→20:52)
[2022-06-25] MEDS: ENOXAPARIN 40 MG/0.4 ML (LOVENOX) SYR SC SCH (08:00)
--- NOTE | 2022-06-25 09:09 | Occupational Ther Daily Note ---
OT Current Status-Daily Note Subjective Pt up in bathroom, agreeable to OT Tx. Pt states he would like to discharge home on Saturday if possible. Mental Status/Objective Patient Orientation: Person, Place, Time, Situation ADL-Treatment Therapy Code Descriptions/Definitions Functional [place] Measure: 0=Not Assessed/NA 4=Minimal Assistance 1=Total Assistance 5=Supervision or Setup 2=Maximal Assistance 6=Modified [place] 3=Moderate Assistance 7=Complete IndependenceSCALE: Activities may be completed with or without assistive devices. 1-Pgchpfckqq-luauqdt completes the activity by him/herself with no assistance from a helper. 5-Set-up or Clean-up Assistance-helper sets up or cleans up; patient completes activity. [place] assists only prior to or following the activity. 4-Supervision or Touching Assistance-helper provides verbal cues and/or touching/steadying and/or contact guard assistance as patient completes activity. Assistance may be provided throughout the activity or intermittently. 3-Partial/Moderate Assistance-helper does LESS THAN HALF the effort. [place] l ifts, holds or supports trunk or limbs, but provides less than half the effort. 2-Substantial/Maximal Assistance-helper does MORE THAN HALF the effort. [place] lifts or holds trunk or limbs and provides more than half the effort. 5-Noatdlnjq-dwdjyu does ALL the effort. Patient does none of the effort to complete the activity. Or, the assistance of 2 or more helpers is required for t he patient to complete the activity. If activity was not attempted, code reason: 7-Patient Refused. 9-Not Applicable-not attempted and the patient did not perform the activity before the current illness, exacerbation or injury. 10-Not Attempted due to Environmental Limitations-(lack of equipment, weather restraints, etc.). 88-Not Attempted due to Medical Conditions or Safety Concerns. Upper Body Dressing (QC): 5 (set up) Lower Body Dressing (QC): 4 (SBA-CGA) Toileting Hygiene (QC): 4 (SBA) Toilet Transfer (QC): 4 (SBA) Other Treatment Pt in bathroom agreeable to OT Tx. Pt completed toileting with SBA, then transferred to EOB with SBA using FWW. Pt completed dressing, CGA-SBA in stand at FWW during pant hike. Pt declined showering and other ADLs at this time. Pt used FWW to perform functional mobility to therapy gym, CGA. OT tx focused on increasing BUE strength and activity tolerance. Pt completed arm bike x15 mins, 20 Watt resistance. Pt completed higher level balance task, batting balloon back and forth with clinical rehabilitation specialist as OT assisted with balance as needed. Pt able to complete x3 rounds with seated rest break between each round. Pt required SBA for balance throughout activity, pt attempted to complete without UE support, but did use walker for balance PRN. Pt returned to his room using FWW, SBA-CGA, then transferred recliner. Post tx, pt in recliner, call light in reach and all needs met. Education OT Patient Education: Correct positioning, Energy conservation, Modified ADL techniques, Progress toward Goal/Update tx plan, Purpose of tx/functional activities, Rehab process Teaching Recipient: Patient Teaching Methods: Discussion Response to Teaching: Verbalize Understanding OT Short Term Goals Short Term Goals Time Frame: Jun 29, 2022 Eatin Oral hygiene: 5 Toileting hygiene: 5 Shower/bathe self: 5 Upper body dressin Lower body dressin Putting on/taking off footwear: 5 OT Fci Goals Fci Goals Time Frame: Jul 06, 2022 Acute change in mental status: 0 Inattention: 0 Disorganized thinkin Altered level of consciousness: 0 Eating (QC): 6 Oral Hygiene (QC): 6 Toileting Hygiene (QC): 6 Shower/Bathe Self (QC): 6 Upper Body Dressing (QC): 6 Lower Body Dressing (QC): 6 On/Off Footwear (QC): 6 1=Demonstrate adherence to instructed precautions during ADL tasks. 2=Patient will verbalize/demonstrate understanding of assistive devices/modifications for ADL. 3=Patient will improve strength/tolerance for activity to enable patient to perform ADL's. OT Education/Plan Problem List/Assessment Assessment: Decreased Activ Tolerance, Decreased UE Strength, Impaired Funct Balance, Impaired I ADL's, Impaired Self-Care Skills Pt would benefit from skilled OT to increase his independence with basic self care and decrease caregiver burden. Discharge Recommendations Plan/Recommendations: Continue POC Treatment Plan/Plan of Care Patient would benefit from OT for education, treatment and training to promote independence in ADL's, mobility, safety and/or upper extremity function for A DL's. Plan of Care: ADL Retraining, Functional Mobility, Group Exercise/Act as Ind, UE Funct Exercise/Act, UE Neuromus Re-Ed/Coord, OTHER (energy conservation education) Treatment Duration: Jul 06, 2022 Frequency: At least 5 of 7 days/Wk (IRF) Estimated Hrs Per Day: 1.5 hours per day Agreement: Yes Rehab Potential: Fair Time Start Time: 08:45 Stop Time: 09:45 DATE: Jun 25, 2022 Total Time Billed (hr/min): 60 Billed Treatment Time 1, ADL (15'), EX (15'), FA 2 (30') NAGA MUHAMMAD OT Jun 25, 2022 09:09
--- NOTE | 2022-06-25 10:39 | Physical Therapy Daily Note ---
PT Daily Note-Current Subjective Patient in recliner pre tx, agrees to PT, has no complaints of pain. Patient says his vertigo has improved but still there. Pain Section J - Health Conditions 1. Rarely or not at all 2. Occasionally 3. Frequently 4. Almost constantly 8. Unable to answer Pain Effect on Sleep: 1 Pain Interference with Therapy: 1 Pain Interference w/Day-to-Day: 1 Appearance Patient in bed post tx with nurse call, phone, tray, all needs met. Mental Status Patient Orientation: Normal For Age Transfers SCALE: Activities may be completed with or without assistive devices. 3-Qazufrmywf-awmsptb completes the activity by him/herself with no assistance from a helper. 5-Set-up or Clean-up Assistance-helper sets up or cleans up; patient completes activity. [place] assists only prior to or following the activity. 4-Supervision or Touching Assistance-helper provides verbal cues and/or touching/steadying and/or contact guard assistance as patient completes activity. Assistance may be provided throughout the activity or intermittently. 3-Partial/Moderate Assistance-helper does LESS THAN HALF the effort. [place] lifts, holds or supports trunk or limbs, but provides less than half the effort. 2-Substantial/Maximal Assistance-helper does MORE THAN HALF the effort. [place] lifts or holds trunk or limbs and provides more than half the effort. 7-Afkcynohf-ofgszm does ALL the effort. Patient does none of the effort to complete the activity. Or, the assistance of 2 or more helpers is required for the patient to complete the activity. If activity was not attempted, code reason: 7-Patient Refused. 9-Not Applicable-not attempted and the patient did not perform the activity be fore the current illness, exacerbation or injury. 10-Not Attempted due to Environmental Limitations-(lack of equipment, weather restraints, etc.). 88-Not Attempted due to Medical Conditions or Safety Concerns. Roll Left & Right (QC): 6 Sit to Lying (QC): 6 Lying to Sitting/Side of Bed(Q: 6 Sit to Stand (QC): 4 Chair/Ngr-xk-Pmsgw Xfer(QC): 4 CGA for sit to stand and transfers Gait Training Distance: 300', 150'x2 Gait Assistive Device: Cane Single Point Patient ambulates at a fair pace, he is a little unsteady but had no LOB. Exercises [place] tested and treated vestibular system. Left [place] Halpike demonstrated left posterior canal canalithiasis. Left Avila maneuver performed x2 with no nystagmus on second attempt. NuStep Minutes: 15 NuStep Workload: 5 Treatments vestibular, strengthening, ambulation, balance Assessment Current Status: Fair Progress improved vertigo but still had it a little still after the avila maneuver PT Skilled Nursing Goals Renewals Manager Goals PT Renewals Manager Goals Time Frame: Jul 06, 2022 Roll Left & Right (QC): 6 Sit to Lying (QC): 6 Lying-Sitting on Side/Bed(QC): 6 Sit to Stand (QC): 6 Chair/Mrn-zk-Jfvpg Xfer(QC): 6 Toilet Transfer (QC): 6 Car Transfer (QC): 6 Does the Patient Walk: Yes Walk 10 feet (QC): 6 Walk 50ft with 2 Turns (QC): 6 Walk 150 ft (QC): 6 Walking 10ft on Uneven Surface: 6 1 Step (curb) (QC): 6 4 Steps (QC): 6 12 Steps (QC): 6 Picking up an Object (QC): 6 Wheel 50 feet with 2 turns (QC: 9 Wheel 150 feet: 9 PT Plan Problem List Problem List: Activity Tolerance, Functional Strength, Safety, Balance, Gait, Transfer, Bed Mobility, ROM Treatment/Plan Treatment Plan: Continue Plan of Care Treatment Plan: Bed Mobility, Education, Functional Activity Jason, Functional Strength, Group Therapy, Gait, Safety, Therapeutic Exercise, Transfers Treatment Duration: Jul 06, 2022 Frequency: At least 5 of 7 days/Wk (IRF) Estimated Hrs Per Day: 1.5 hours per day Patient and/or Family Agrees t: Yes Safety Risks/Education Patient Education: Gait Training, Transfer Techniques, Correct Positioning, Safety Issues Teaching Recipient: Patient Teaching Methods: Demonstration, Discussion Response to Teaching: Reinforcement Needed Time Time In: 0945 Time Out: 1045 DATE: Jun 25, 2022 Total Billed Treatment Time: 60 Total Billed Treatment 1 visit EX 15' FA 45' DARRELL NGUYEN PT Jun 25, 2022 10:39
--- NOTE | 2022-06-25 15:52 | Therapy Group Daily Note ---
Therapy Daily Group Note Patient Education Topic Exercises Exercises LE Seated Exercise, UE Exercise Session Ratio (pt:therapist): 3:1 Goal of Session: Education on ARU Expectations, UE/LE Strengthing Goal Met for this Session: Yes Pt Benefit of Group: Contributions to Others, F/U Use of Strategies @Home, Increased Functional Safety, Increased Functional Strength, Improved Cognition, Recognition of Peers, Socialization Other/Notes Pt ambulated to OT/PT group at [facility] using W. Group consisted of introductions (name, place living, favorite activity in spring), socialization, B UE/LE seated exercises, education on ARU expectations and benefits of exercise. Pt introduced self appropriately and actively listened to peers. Pt asked questions and commented to peers throughout group. Pt demonstrated understanding of educational topics by voicing own strategies, exercises and experiences that related to topics. After session, pt rests at EOB with call light/phone in reach. All needs met in room. Start Time: 13:00 Stop Time: 14:00 Total Billed Treatment Time: 60 Total Billed Treatment 1, GRP PRISCILLA ABEL QUALITY CONTROL SCIENTIST Jun 25, 2022 15:52
[2022-06-25 20:43] VITALS: BP 125/60
[2022-06-25] MEDS: AtorvaSTATin TABLET 10 MG TABLET PO SCH (20:52)
--- NOTE | 2022-06-26 06:18 | PM&R Progress Note ---
Subjective HPI/CC On Admission Date Seen by Provider: Jun 26, 2022 Time Seen by Provider: 09:00 Subjective/Events-last exam 06/26/2022: Much improved Balance is good No falls Improved overall 06/25/2022: No major issues No pain reported Dizziness improved but still present Fall risk 06/24/2022: No major issues No pain reported Dizziness still an issue but slowly improved 06/23/2022: No major issues Still a bit light headiness when he ambulates No falls Eating well BM regimen maintained Review of Systems General: Fatigue, Malaise Objective Exam Vital Signs Vital Signs Date Time Temp Pulse Resp B/P (MAP) Pulse Ox O2 Delivery O2 Flow Rate FiO2 06/26/22 20:10 Room Air 06/26/22 19:19 36.1 87 16 118/70 (86) 98 Capillary Refill : General Appearance: No Apparent Distress, WD/WN, Chronically ill, Thin HEENT: PERRL/EOMI, Normal ENT Inspection, Pharynx Normal Neck: Full Range of Motion, Normal Inspection, Non Tender, Supple, Carotid Bruit Respiratory: Chest Non Tender, Lungs Clear, Normal Breath Sounds, No Accessory Muscle Use, No Respiratory Distress Cardiovascular: Regular Rate, Rhythm, No Edema, No Gallop, No JVD, No Murmur, Normal Peripheral Pulses Gastrointestinal: Normal Bowel Sounds, No Organomegaly, No Pulsatile Mass, Non Tender, Soft Back: Normal Inspection, No CVA Tenderness, No Vertebral Tenderness Extremity: Normal Capillary Refill, Normal Inspection, Normal Range of Motion, Non Tender, No Calf Tenderness, No Pedal Edema Neurologic/Psychiatric: Alert, Oriented x3, Normal Mood/Affect, automobile assembly supervisor II-XII Norm as Tested, Abnormal Gait, Motor Weakness (generalized weakness ) Skin: Normal Color, Warm/Dry Lymphatic: No Adenopathy Results/Procedures Lab Patient resulted labs reviewed. FIM Transfers Therapy Code Descriptions/Definitions Functional [place] Measure: 0=Not Assessed/NA 4=Minimal Assistance 1=Total Assistance 5=Supervision or Setup 2=Maximal Assistance 6=Modified [place] 3=Moderate Assistance 7=Complete IndependenceSCALE: Activities may be completed with or without assistive devices. 9-Tngykuvoky-utpvaxy completes the activity by him/herself with no assistance from a helper. 5-Set-up or Clean-up Assistance-helper sets up or cleans up; patient completes activity. [place] assists only prior to or following the activity. 4-Supervision or Touching Assistance-helper provides verbal cues and/or touching /steadying and/or contact guard assistance as patient completes activity. Assistance may be provided throughout the activity or intermittently. 3-Partial/Moderate Assistance-helper does LESS THAN HALF the effort. [place] lifts, holds or supports trunk or limbs, but provides less than half the effort. 2-Substantial/Maximal Assistance-helper does MORE THAN HALF the effort. [place] lifts or holds trunk or limbs and provides more than half the effort. 4-Ujhjzleva-iojbxx does ALL the effort. Patient does none of the effort to complete the activity. Or, the assistance of 2 or more helpers is required for the patient to complete the activity. If activity was not attempted, code reason: 7-Patient Refused. 9-Not Applicable-not attempted and the patient did not perform the activity before the current illness, exacerbation or injury. 10-Not Attempted due to Environmental Limitations-(lack of equipment, weather restraints, etc.). 88-Not Attempted due to Medical Conditions or Safety Concerns. Roll Left to Right (QC): 6 Sit to Lying (QC): 6 Sit to Stand (QC): 4 Chair/Inn-kn-Fiasf Xfer(QC): 4 Car Transfer (QC): 4 Gait Training Does the Patient Walk?: Yes Distance: 300', 150'x2 Walk 10 feet (QC): 5 Walk 50 ft with 2 Turns(QC): 4 Walk 150 ft (QC): 4 Walking 10ft/uneven surface-QC: 4 Gait Assistive Device: Cane Single Point Wheelchair Training Wheel 50 ft with 2 turns (QC): 9 Wheel 150 ft (QC): 9 Stair Training #of Steps: 4 1 Step (curb) (QC): 4 4 Steps (QC): 4 12 Steps (QC): 88 Balance Picking up an Object (QC): 4 (CGA using a armored service technician) ADL-Treatment Eating (QC): 6 (Pt has demonstrated ability to complete independently.) Oral Hygiene (QC): 6 Shower/Bathe Self (QC): 4 Upper Body Dressing (QC): 5 (set up) Lower Body Dressing (QC): 4 (SBA-CGA) On/Off Footwear (QC): 5 Toileting Hygiene (QC): 4 (SBA) Toilet Transfer (QC): 4 (SBA) Assessment/Plan Assessment and Plan Assess & Plan/Chief Complaint Assessment: Debility from incapacitating vertigo HLP Advanced age Nausea Colon cancer hx Plan: Home meds Monitor for pain and nausea PT OT 06/23/2022: Monitor closely Fall risk 06/24/2022: Monitor closely 06/25/2022: No major issues 06/26/2022: DC planned (1) Vertigo Status: Acute (2) Advanced age Status: Chronic (3) Vomiting Status: Acute (4) Disequilibrium Status: Acute (5) Generalized weakness Status: Acute TEMITOPE MOYA DO Jun 26, 2022 06:17
[2022-06-26 08:00] VITALS: BP 110/64
[2022-06-26] MEDS: DOCUSATE SODIUM 100 MG (COLACE) CAP PO SCH ×2 (09:12→20:48)
[2022-06-26] MEDS: SENNA W/DOCUSATE (SENOKOT S) TABLET PO SCH ×2 (09:12→20:48)
[2022-06-26] MEDS: polyethylene glycoL POWDER 17 GM (MIRALAX) PACK PO SCH ×3 (09:12→20:18)
[2022-06-26] MEDS: ENOXAPARIN 40 MG/0.4 ML (LOVENOX) SYR SC SCH (09:12)
--- NOTE | 2022-06-26 09:28 | Occupational Ther Daily Note ---
OT Current Status-Daily Note Subjective Pt in bed, agreeable to OT Tx. ADL-Treatment Therapy Code Descriptions/Definitions Functional [place] Measure: 0=Not Assessed/NA 4=Minimal Assistance 1=Total Assistance 5=Supervision or Setup 2=Maximal Assistance 6=Modified [place] 3=Moderate Assistance 7=Complete IndependenceSCALE: Activities may be completed with or without assistive devices. 6-Crglgjhnrb-mkelqfn completes the activity by him/herself with no assistance from a helper. 5-Set-up or Clean-up Assistance-helper sets up or cleans up; patient completes activity. [place] assists only prior to or following the activity. 4-Supervision or Touching Assistance-helper provides verbal cues and/or touching/steadying and/or contact guard assistance as patient completes activity. Assistance may be provided throughout the activity or intermittently. 3-Partial/Moderate Assistance-helper does LESS THAN HALF the effort. [place] lifts, holds or supports trunk or limbs, but provides less than half the effort. 2-Substantial/Maximal Assistance-helper does MORE THAN HALF the effort. [place] lifts or holds trunk or limbs and provides more than half the effort. 3-Xbhmnzwar-fuxnfz does ALL the effort. Patient does none of the effort to complete the activity. Or, the assistance of 2 or more helpers is required for the patient to complete the activity. If activity was not attempted, code reason: 7-Patient Refused. 9-Not Applicable-not attempted and the patient did not perform the activity befo re the current illness, exacerbation or injury. 10-Not Attempted due to Environmental Limitations-(lack of equipment, weather re straints, etc.). 88-Not Attempted due to Medical Conditions or Safety Concerns. Eating (QC): 6 Oral Hygiene (QC): 6 (IND standing at sink.) Shower/Bathe Self (QC): 6 (IND) Upper Body Dressing (QC): 6 Lower Body Dressing (QC): 6 On/Off Footwear: 6 Toileting Hygiene (QC): 6 Toilet Transfer (QC): 6 Pt IND with tasks once in area he is performing task. Pt requires CGA-SBA during functional mobility/transfers between various ADL areas. Other Treatment Pt in bed, transferred supine to sit EOB, independently. Pt used SPC in room, CGA, pt able to locate and gather ADL supplies. Pt transferred into bathroom, completing toileting, showering, and oral care. Pt required CGA-SBA between toilet, SC, and sink, but once in each location pt able to perform various ADLs without assistance. Pt used SPC to perform functional mobility to therapy gym, CGA, pt required 1 standing RB due to vertigo and to regain his balance. Once in gym, pt performed arm bike, 15 mins, 20 Watt resistance, no rest breaks. Pt returned to his room using SPC, CGA. Post tx, pt in recliner, call light in reach and all needs met, chair alarm activated. Education OT Patient Education: Correct positioning, Energy conservation, Exercise program, Modified ADL techniques, Progress toward Goal/Update tx plan, Purpose of tx/functional activities, Rehab process Teaching Recipient: Patient Teaching Methods: Discussion Response to Teaching: Verbalize Understanding BIMS CAM BIMS Expression of Ideas and Wants: Without Difficulty Understanding Verbal Content: Understands Brief Interview/Mental Status: Yes IRF ROXANA BIMS: IRF ROXANA BIMS Response (Comments) Value Repitition of Three Words Three 3 Recalls Socks Yes, No Cue Required 2 Recalls Blue Yes, No Cue Required 2 Recalls Bed Yes, No Cue Required 2 Year Correct 3 Month Accurate Within 5 Days 2 Day Correct 1 Total 15 Should Staff Asses. Mental St.: No CAM Mental Status Change/Baseline: 0 Inattention: 0 Disorganized thinkin Altered level of consciousness: 0 OT Short Term Goals Short Term Goals Time Frame: Jun 29, 2022 Eatin Oral hygiene: 5 Toileting hygiene: 5 Shower/bathe self: 5 Upper body dressin Lower body dressin Putting on/taking off footwear: 5 OT Nursing Home Goals Extrusion Supervisor Goals Time Frame: Jul 06, 2022 Acute change in mental status: 0 Inattention: 0 Disorganized thinkin Altered level of consciousness: 0 Eating (QC): 6 Oral Hygiene (QC): 6 Toileting Hygiene (QC): 6 Shower/Bathe Self (QC): 6 Upper Body Dressing (QC): 6 Lower Body Dressing (QC): 6 On/Off Footwear (QC): 6 1=Demonstrate adherence to instructed precautions during ADL tasks. 2=Patient will verbalize/demonstrate understanding of assistive devices/modifications for ADL. 3=Patient will improve strength/tolerance for activity to enable patient to perform ADL's. OT Education/Plan Problem List/Assessment Assessment: Decreased Activ Tolerance, Impaired Funct Balance, Impaired I ADL's Pt would benefit from skilled OT to increase his independence with basic self care and decrease caregiver burden. Discharge Recommendations Plan/Recommendations: Continue POC Treatment Plan/Plan of Care Patient would benefit from OT for education, treatment and training to promote independence in ADL's, mobility, safety and/or upper extremity function for ADL's. Plan of Care: ADL Retraining, Functional Mobility, Group Exercise/Act as Ind, UE Funct Exercise/Act, UE Neuromus Re-Ed/Coord, OTHER (energy conservation education) Treatment Duration: Jul 06, 2022 Frequency: At least 5 of 7 days/Wk (IRF) Estimated Hrs Per Day: 1.5 hours per day Agreement: Yes Rehab Potential: Fair Time Start Time: 08:45 Stop Time: 09:45 DATE: Jun 26, 2022 Total Time Billed (hr/min): 60 Billed Treatment Time 1, ADL 3 (45'), EX (15') NAGA MUHAMMAD OT Jun 26, 2022 09:28
--- NOTE | 2022-06-26 10:59 | Physical Therapy Daily Note ---
PT Daily Note-Current Subjective Patient in recliner pre tx, agrees to PT, has no complaints of pain. Pain Section J - Health Conditions 1. Rarely or not at all 2. Occasionally 3. Frequently 4. Almost constantly 8. Unable to answer Pain Effect on Sleep: 1 Pain Interference with Therapy: 1 Pain Interference w/Day-to-Day: 1 Appearance Patient in recliner post tx with nurse call, phone, tray, all needs met, chair alarm on. Mental Status Patient Orientation: Normal For Age Transfers SCALE: Activities may be completed with or without assistive devices. 3-Nusxbvmiyk-aqyyqnq completes the activity by him/herself with no assistance from a helper. 5-Set-up or Clean-up Assistance-helper sets up or cleans up; patient completes activity. [place] assists only prior to or following the activity. 4-Supervision or Touching Assistance-helper provides verbal cues and/or touching/steadying and/or contact guard assistance as patient completes activity. Assistance may be provided throughout the activity or intermittently. 3-Partial/Moderate Assistance-helper does LESS THAN HALF the effort. [place] lifts, holds or supports trunk or limbs, but provides less than half the effort. 2-Substantial/Maximal Assistance-helper does MORE THAN HALF the effort. [place] lifts or holds trunk or limbs and provides more than half the effort. 2-Hqdwznlhy-yajnql does ALL the effort. Patient does none of the effort to complete the activity. Or, the assistance of 2 or more helpers is required for the patient to complete the activity. If activity was not attempted, code reason: 7-Patient Refused. 9-Not Applicable-not attempted and the patient did not perform the activity before the current illness, exacerbation or injury. 10-Not Attempted due to Environmental Limitations-(lack of equipment, weather restraints, etc.). 88-Not Attempted due to Medical Conditions or Safety Concerns. Sit to Stand (QC): 4 Chair/Xls-gd-Fubtr Xfer(QC): 4 SBA Gait Training Distance: 1000', 120' Walk 10 feet (QC): 4 Walk 50 ft with 2 Turns(QC): 4 Walk 150 ft (QC): 4 Gait Persons Needed: 1 Gait Assistive Device: FWW Patient ambulated 1000' with a rolling walker with SBA, slow but steady ambulation, patient also ambulated 120' with a single point cane with CGA, has some unsteadiness with this but no LOB. Stair Training Stair Training: Handrails/: 2 handrails #of Steps: 12 1 Step (curb) (QC): 4 4 Steps (QC): 4 12 Steps (QC): 4 Stairs: Pattern: Reciprocal SBA Exercises [facility] tested and treated vestibular system. Left Brent Halpike demonstrated left posterior canal canalithiasis. Left Ahmet maneuver performed with no nystagmus. NuStep Minutes: 15 NuStep Workload: 5 PT Usp Goals Flame Hardening Machine Setter Goals PT Flame Hardening Machine Setter Goals Time Frame: Jul 06, 2022 Roll Left & Right (QC): 6 Sit to Lying (QC): 6 Lying-Sitting on Side/Bed(QC): 6 Sit to Stand (QC): 6 Chair/Ypn-cr-Gtzsj Xfer(QC): 6 Toilet Transfer (QC): 6 Car Transfer (QC): 6 Does the Patient Walk: Yes Walk 10 feet (QC): 6 Walk 50ft with 2 Turns (QC): 6 Walk 150 ft (QC): 6 Walking 10ft on Uneven Surface: 6 1 Step (curb) (QC): 6 4 Steps (QC): 6 12 Steps (QC): 6 Picking up an Object (QC): 6 Wheel 50 feet with 2 turns (QC: 9 Wheel 150 feet: 9 PT Plan Problem List Problem List: Activity Tolerance, Functional Strength, Safety, Balance, Gait, Transfer, ROM Treatment/Plan Treatment Plan: Continue Plan of Care Treatment Plan: Bed Mobility, Education, Functional Activity Jason, Functional Strength, Group Therapy, Gait, Safety, Therapeutic Exercise, Transfers Treatment Duration: Jul 06, 2022 Frequency: At least 5 of 7 days/Wk (IRF) Estimated Hrs Per Day: 1.5 hours per day Patient and/or Family Agrees t: Yes Safety Risks/Education Patient Education: Gait Training, Transfer Techniques, Correct Positioning, Safety Issues Teaching Recipient: Patient Teaching Methods: Demonstration, Discussion Response to Teaching: Reinforcement Needed Time Time In: 1000 Time Out: 1100 DATE: Jun 26, 2022 Total Billed Treatment Time: 30 Total Billed Treatment 1 visit EX 15' FA 45' DARRELL NGUYEN PT Jun 26, 2022 10:59
--- NOTE | 2022-06-26 11:31 | Occupational Ther Daily Note ---
OT Current Status-Daily Note Subjective Pt in recliner, agreeable to OT Tx. ADL-Treatment Therapy Code Descriptions/Definitions Functional [place] Measure: 0=Not Assessed/NA 4=Minimal Assistance 1=Total Assistance 5=Supervision or Setup 2=Maximal Assistance 6=Modified [place] 3=Moderate Assistance 7=Complete IndependenceSCALE: Activities may be completed with or without assistive devices. 0-Pxaajxwrmr-tcgmhji completes the activity by him/herself with no assistance from a helper. 5-Set-up or Clean-up Assistance-helper sets up or cleans up; patient completes activity. [place] assists only prior to or following the activity. 4-Supervision or Touching Assistance-helper provides verbal cues and/or touching/steadying and/or contact guard assistance as patient completes activity. Assistance may be provided throughout the activity or intermittently. 3-Partial/Moderate Assistance-helper does LESS THAN HALF the effort. [place] lifts, holds or supports trunk or limbs, but provides less than half the effort. 2-Substantial/Maximal Assistance-helper does MORE THAN HALF the effort. [place] lifts or holds trunk or limbs and provides more than half the effort. 1-Rmlowscfa-pxmvnc does ALL the effort. Patient does none of the effort to compl ete the activity. Or, the assistance of 2 or more helpers is required for the patient to complete the activity. If activity was not attempted, code reason: 7-Patient Refused. 9-Not Applicable-not attempted and the patient did not perform the activity before the current illness, exacerbation or injury. 10-Not Attempted due to Environmental Limitations-(lack of equipment, weather restraints, etc.). 88-Not Attempted due to Medical Conditions or Safety Concerns. Other Treatment Pt in recliner. Pt used FWW to perform functional mobility to therapy gym, SBA. OT tx focused on increasing BUE strength and activity tolerance. Pt completed UE reaching task, 1lb wrist weights BUEs. Pt completed nut/bolt block, placing/removing nuts/bolts from block, x20. Pt returned to his room, SBA using FWW, transferring to recliner. Post tx, pt in recliner, call light in reach and all needs met. Education OT Patient Education: Correct positioning, Energy conservation, Modified ADL techniques, Progress toward Goal/Update tx plan, Purpose of tx/functional activities, Rehab process Teaching Recipient: Patient Teaching Methods: Discussion Response to Teaching: Verbalize Understanding OT Short Term Goals Short Term Goals Time Frame: Jun 29, 2022 Eatin Oral hygiene: 5 Toileting hygiene: 5 Shower/bathe self: 5 Upper body dressin Lower body dressin Putting on/taking off footwear: 5 OT Long-Term Goals Programs Assistant Goals Time Frame: Jul 06, 2022 Acute change in mental status: 0 Inattention: 0 Disorganized thinkin Altered level of consciousness: 0 Eating (QC): 6 (met) Oral Hygiene (QC): 6 (met) Toileting Hygiene (QC): 6 (met) Shower/Bathe Self (QC): 6 (met) Upper Body Dressing (QC): 6 (met) Lower Body Dressing (QC): 6 (met) On/Off Footwear (QC): 6 (met) 1=Demonstrate adherence to instructed precautions during ADL tasks. 2=Patient will verbalize/demonstrate understanding of assistive devices/modifications for ADL. 3=Patient will improve strength/tolerance for activity to enable patient to perform ADL's. OT Education/Plan Problem List/Assessment Assessment: Decreased Activ Tolerance, Decreased UE Strength, Impaired I ADL's Pt would benefit from skilled OT to increase his independence with basic self care and decrease caregiver burden. Discharge Recommendations Plan/Recommendations: Continue POC Treatment Plan/Plan of Care Patient would benefit from OT for education, treatment and training to promote independence in ADL's, mobility, safety and/or upper extremity function for ADL's. Plan of Care: ADL Retraining, Functional Mobility, Group Exercise/Act as Ind, UE Funct Exercise/Act, UE Neuromus Re-Ed/Coord, OTHER (energy conservation education) Treatment Duration: Jul 06, 2022 Frequency: At least 5 of 7 days/Wk (IRF) Estimated Hrs Per Day: 1.5 hours per day Agreement: Yes Rehab Potential: Fair Time Start Time: 11:15 Stop Time: 11:45 DATE: Jun 26, 2022 Total Time Billed (hr/min): 30 Billed Treatment Time 1, FA 2 NAGA MUHAMMAD OT Jun 26, 2022 11:31
--- NOTE | 2022-06-26 13:59 | Physical Therapy Daily Note ---
PT Daily Note-Current Subjective Patient in recliner pre tx, agrees to PT, has no complaints of pain. Pain Section J - Health Conditions 1. Rarely or not at all 2. Occasionally 3. Frequently 4. Almost constantly 8. Unable to answer Pain Effect on Sleep: 1 Pain Interference with Therapy: 1 Pain Interference w/Day-to-Day: 1 Appearance Patient in bed post tx with nurse call, phone, tray,all needs met. Mental Status Patient Orientation: Normal For Age Transfers SCALE: Activities may be completed with or without assistive devices. 4-Vlilcunbar-qdmghsj completes the activity by him/herself with no assistance from a helper. 5-Set-up or Clean-up Assistance-helper sets up or cleans up; patient completes activity. [place] assists only prior to or following the activity. 4-Supervision or Touching Assistance-helper provides verbal cues and/or touching/steadying and/or contact guard assistance as patient completes activity. Assistance may be provided throughout the activity or intermittently. 3-Partial/Moderate Assistance-helper does LESS THAN HALF the effort. [place] lifts, holds or supports trunk or limbs, but provides less than half the effort. 2-Substantial/Maximal Assistance-helper does MORE THAN HALF the effort. [place] lifts or holds trunk or limbs and provides more than half the effort. 8-Ngispumsk-tlwfdw does ALL the effort. Patient does none of the effort to complete the activity. Or, the assistance of 2 or more helpers is required for the patient to complete the activity. If activity was not attempted, code reason: 7-Patient Refused. 9-Not Applicable-not attempted and the patient did not perform the activity before the current illness, exacerbation or injury. 10-Not Attempted due to Environmental Limitations-(lack of equipment, weather restraints, etc.). 88-Not Attempted due to Medical Conditions or Safety Concerns. Roll Left & Right (QC): 6 Sit to Lying (QC): 6 Lying to Sitting/Side of Bed(Q: 6 Sit to Stand (QC): 6 Chair/Ugk-fx-Hutni Xfer(QC): 4 Toilet Transfer (QC): 4 Car Transfer (QC): 4 Patient performs rolling and supine <-> sit with independence, sit <-> stand independent, transfers and car transfer with SBA. Gait Training Distance: 300' Walk 10 feet (QC): 4 Walk 50 ft with 2 Turns(QC): 4 Walk 150 ft (QC): 4 Walking 10ft/uneven surface-QC: 4 Gait Persons Needed: 1 Gait Assistive Device: FWW Patient can ambulate 300' with a rolling walker with SBA (including 50' with at least 2 turns of 90 degrees and 10' over an uneven surface), gait is slow but steady Wheelchair Training Wheel 50 ft with 2 turns (QC): 9 Wheel 150 ft (QC): 9 Balance Picking up an Object (QC): 4 (SBA) Treatments Patient was also educated on home use of Ahmet and precautions, HO given. Assessment Current Status: Fair Progress improving balance, less light headedness PT Detention Goals Yacht Hand Goals PT Detention Goals Time Frame: Jul 06, 2022 Roll Left & Right (QC): 6 Sit to Lying (QC): 6 Lying-Sitting on Side/Bed(QC): 6 Sit to Stand (QC): 6 Chair/Pil-dz-Rxbvj Xfer(QC): 6 Toilet Transfer (QC): 6 Car Transfer (QC): 6 Does the Patient Walk: Yes Walk 10 feet (QC): 6 Walk 50ft with 2 Turns (QC): 6 Walk 150 ft (QC): 6 Walking 10ft on Uneven Surface: 6 1 Step (curb) (QC): 6 4 Steps (QC): 6 12 Steps (QC): 6 Picking up an Object (QC): 6 Wheel 50 feet with 2 turns (QC: 9 Wheel 150 feet: 9 PT Plan Problem List Problem List: Activity Tolerance, Functional Strength, Safety, Balance, Gait, Transfer, ROM Treatment/Plan Treatment Plan: Continue Plan of Care Treatment Plan: Bed Mobility, Education, Functional Activity Jason, Functional Strength, Group Therapy, Gait, Safety, Therapeutic Exercise, Transfers Treatment Duration: Jul 06, 2022 Frequency: At least 5 of 7 days/Wk (IRF) Estimated Hrs Per Day: 1.5 hours per day Patient and/or Family Agrees t: Yes Safety Risks/Education Patient Education: Gait Training, Transfer Techniques, Correct Positioning, Safety Issues Teaching Recipient: Patient Teaching Methods: Demonstration, Discussion Response to Teaching: Reinforcement Needed Time Time In: 1330 Time Out: 1400 DATE: Jun 26, 2022 Total Billed Treatment Time: 30 Total Billed Treatment 1 visit FA 30' DARRELL NGUYEN PT Jun 26, 2022 13:59
[2022-06-26 19:19] VITALS: BP 118/70
--- NOTE | 2022-06-27 05:12 | Discharge Summary ---
Diagnosis/Chief Complaint Date of Admission Jun 22, 2022 at 13:58 Date of Discharge Discharge Date: Jun 27, 2022 Discharge Diagnosis Assessment: Debility from incapacitating vertigo HLP Advanced age Nausea Colon cancer hx Plan: Home meds Monitor for pain and nausea PT OT 06/23/2022: Monitor closely Fall risk 06/24/2022: Monitor closely 06/25/2022: No major issues 06/26/2022: DC planned (1) Vertigo Status: Acute (2) Advanced age Status: Chronic (3) Vomiting Status: Acute (4) Disequilibrium Status: Acute (5) Generalized weakness Status: Acute Discharge Summary Discharge Physical Examination Allergies: Coded Allergies: codeine (Verified Adverse Reaction, Intermediate, CONFUSION, 11/10/18) Vitals & I&Os Vital Signs Date Time Temp Pulse Resp B/P (MAP) Pulse Ox O2 Delivery O2 Flow Rate FiO2 06/27/22 08:00 36.1 73 18 133/74 (93) 95 0.00 06/26/22 20:10 Room Air General Appearance: Alert Respiratory: Clear to Auscultation Cardiovascular: Regular Rate Psych/Mental Status: Mental Status NL Hospital Course Was the Problem List Reviewed?: Yes Brief hospital course after transferred from fourth floor due to incapacitating vertigo with MRI negative for CVA. Patient is able to participate in all therapies. Vertigo and lightheadedness did ultimately resolved. Labs remained stable and bowel function returned back to normal and he was eating and drinking and ready for discharge. Labs (last 24 hrs) Laboratory Tests 06/23/22 04:45: White Blood Count 5.8, Red Blood Count 3.21L, Hemoglobin 9.9L, Hematocrit 30L, Mean Corpuscular Volume 93, Mean Corpuscular Hemoglobin 31, Mean Corpuscular Hemoglobin Concent 33, Red Cell Distribution Width 13.2, Platelet Count 147, Mean Platelet Volume 9.3, Immature Granulocyte % (Auto) 1, Neutrophils (%) (Auto) 63, Lymphocytes (%) (Auto) 26, Monocytes (%) (Auto) 7, Eosinophils (%) (Auto) 3, Basophils (%) (Auto) 0, Neutrophils # (Auto) 3.7, Lymphocytes # (Auto) 1.5, Monocytes # (Auto) 0.4, Eosinophils # (Auto) 0.2, Basophils # (Auto) 0.0, Immature Granulocyte # (Auto) 0.0, Sodium Level 141, Potassium Level 3.9, Chloride Level 107, Carbon Dioxide Level 26, Anion Gap 8, Blood Urea Nitrogen 17, Creatinine 1.19, Estimat Glomerular Filtration Rate 58, BUN/Creatinine Ratio 14, Glucose Level 97, Calcium Level 8.9, Corrected Calcium 9.5, Total Bilirubin 0.4, Aspartate Amino Transf (AST/SGOT) 14, Alanine Aminotransferase (ALT/SGPT) 6, Alkaline Phosphatase 68, Total Protein 5.7L, Albumin 3.2 Pending Labs Laboratory Tests 06/23/22 04:45: White Blood Count 5.8, Red Blood Count 3.21, Hemoglobin 9.9, Hematocrit 30, Mean Corpuscular Volume 93, Mean Corpuscular Hemoglobin 31, Mean Corpuscular Hemoglobin Concent 33, Red Cell Distribution Width 13.2, Platelet Count 147, Mean Platelet Volume 9.3, Immature Granulocyte % (Auto) 1, Neutrophils (%) (Auto) 63, Lymphocytes (%) (Auto) 26, Monocytes (%) (Auto) 7, Eosinophils (%) (Auto) 3, Basophils (%) (Auto) 0, Neutrophils # (Auto) 3.7, Lymphocytes # (Auto) 1.5, Monocytes # (Auto) 0.4, Eosinophils # (Auto) 0.2, Basophils # (Auto) 0.0, Immature Granulocyte # (Auto) 0.0, Sodium Level 141, Potassium Level 3.9, Chloride Level 107, Carbon Dioxide Level 26, Anion Gap 8, Blood Urea Nitrogen 17, Creatinine 1.19, Estimat Glomerular Filtration Rate 58, BUN/Creatinine Ratio 14, Glucose Level 97, Calcium Level 8.9, Corrected Calcium 9.5, Total Bilirubin 0.4, Aspartate Amino Transf (AST/SGOT) 14, Alanine Aminotransferase (ALT/SGPT) 6, Alkaline Phosphatase 68, Total Protein 5.7, Albumin 3.2 Discharge Home Medications: Active Scripts Active Reported Simvastatin 20 Mg Tablet 20 Mg PO Q72H @ Instructions to patient/family Please see electronic discharge instructions given to patient. Diagnosis/Problems Diagnosis/Problems (1) Vertigo Status: Acute (2) Advanced age Status: Chronic (3) Vomiting Status: Acute (4) Disequilibrium Status: Acute (5) Generalized weakness Status: Acute TEMITOPE MOYA DO Jun 27, 2022 05:12
[2022-06-27 08:00] VITALS: BP 133/74
[2022-06-27] MEDS: DOCUSATE SODIUM 100 MG (COLACE) CAP PO SCH (08:11)
[2022-06-27] MEDS: ENOXAPARIN 40 MG/0.4 ML (LOVENOX) SYR SC SCH (08:11)
[2022-06-27] MEDS: polyethylene glycoL POWDER 17 GM (MIRALAX) PACK PO SCH (08:11)
[2022-06-27] MEDS: SENNA W/DOCUSATE (SENOKOT S) TABLET PO SCH (08:11)
[2022-06-27 14:07] VITALS: BP 133/74
--- NOTE | 2022-06-27 15:42 | Therapy Team Discharge Summary ---
Therapy Discharge Summary Discharge Recommendations Date of Discharge Jun 27, 2022 at 13:40 Physical Therapy Patient came to rehab with vertigo. Upon evaluation patient performs rolling and supine <-> sit with independence, sit <-> stand and transfers CGA, car transfer CGA, ambulate 200' with a rolling walker with CGA (including 50' with at least 2 turns of 90 degrees and 10' over an uneven surface), up and down 4 steps using 2 handrails with CGA, and picked up an object from the floor using a shipping order clerk with CGA. Patient has been performing bed mobility and transfer t raining, balance and endurance training, functional strengthening, stair training, gait training, and education. Patient has made fair progress but has only met his terminal gauger goals for bed mobility and transfers. Now, patient performs rolling and supine <-> sit with independence, sit <-> stand independent, transfers and car transfer with SBA, can ambulate 300' with a rolling walker with SBA (including 50' with at least 2 turns of 90 degrees and 10' over an uneven surface), can go up and down 12 steps using 2 handrails with SBA, and can roller picker an object from the floor with SBA. Patient has been discharged from this facility and will be discharged from PT at this time. Roll Left to Right (QC): 6 Sit to Lying (QC): 6 Lying to Sitting/Side of Bed(Q: 6 Sit to Stand (QC): 6 Chair/Nlj-di-Ihrxz Xfer(QC): 4 Toilet Transfer (QC): 4 Car Transfer (QC): 4 Does the Patient Walk: Yes Walk 10 feet (QC): 4 Walk 50 ft with 2 Turns(QC): 4 Walk 150 ft (QC): 4 Walking 10ft on uneven surface: 4 Distance: 200', 120' Gait Assistive Device: FWW Does the Pt Use a Wheelchair: No Wheel 50 ft with 2 turns (QC): 9 Wheel 150 ft (QC): 9 Type of Wheelchair: N/A #of Steps: 12 1 Step (curb) (QC): 4 4 Steps (QC): 4 12 Steps (QC): 4 Balance Sitting Static: Fair Balance Sitting Dynamic: Fair Balance-Standing Static: Poor Picking up an Object (QC): 4 (SBA) Occupational Therapy Decreased Activ Tolerance, Decreased UE Strength, Impaired I ADL's Eating (QC): 6 Oral Hygiene (QC): 6 (IND standing at sink.) Shower/Bathe Self (QC): 6 (IND) Upper Body Dressing (QC): 6 Lower Body Dressing (QC): 6 On/Off Footwear (QC): 6 Toileting Hygiene (QC): 6 PT [facility] Goals Client Support Manager Goals PT Client Support Manager Goals Time Frame: Jul 06, 2022 Roll Left to Right (QC): 6 Sit to Lying (QC): 6 Lying-Sitting on Side/Bed(QC): 6 Sit to Stand (QC): 6 Chair/Tde-op-Niuur Xfer(QC): 6 Toilet/Commode Transfer (QC): 6 Car Transfer (QC): 6 Does the Patient Walk: Yes Walk 10 feet (QC): 6 Walk 10ft-Uneven Surface(QC): 6 Walk 50ft with 2 Turns (QC): 6 Walk 150 ft (QC): 6 Wheel 50 feet with 2 turns (QC: 9 Wheel 150 feet: 9 1 Step (curb) (QC): 6 4 Steps (QC): 6 12 Steps (QC): 6 Picking up an Object (QC): 6 OT Halfway Goals Client Support Manager Goals Time Frame: Jul 06, 2022 Acute change in mental status: 0 Inattention: 0 Disorganized thinkin Altered level of consciousness: 0 Eating (QC): 6 (met) Oral Hygiene (QC): 6 (met) Toileting Hygiene (QC): 6 (met) Shower/Bathe Self (QC): 6 (met) Upper Body Dressing (QC): 6 (met) Lower Body Dressing (QC): 6 (met) On/Off Footwear (QC): 6 (met) 1=Demonstrate adherence to instructed precautions during ADL tasks. 2=Patient will verbalize/demonstrate understanding of assistive devices/modifications for ADL. 3=Patient will improve strength/tolerance for activity to enable patient to perform ADL's. DARRELL NGUYEN PT Jun 27, 2022 15:42
--- NOTE | 2022-06-27 16:04 | Therapy Team Discharge Summary ---
Therapy Discharge Summary Discharge Recommendations Date of Discharge Jun 27, 2022 at 13:40 Physical Therapy Roll Left to Right (QC): 6 Sit to Lying (QC): 6 Lying to Sitting/Side of Bed(Q: 6 Sit to Stand (QC): 6 Chair/Oga-yv-Mudus Xfer(QC): 4 Toilet Transfer (QC): 4 Car Transfer (QC): 4 Does the Patient Walk: Yes Walk 10 feet (QC): 4 Walk 50 ft with 2 Turns(QC): 4 Walk 150 ft (QC): 4 Walking 10ft on uneven surface: 4 Distance: 200', 120' Gait Assistive Device: FWW Does the Pt Use a Wheelchair: No Wheel 50 ft with 2 turns (QC): 9 Wheel 150 ft (QC): 9 Type of Wheelchair: N/A #of Steps: 12 1 Step (curb) (QC): 4 4 Steps (QC): 4 12 Steps (QC): 4 Balance Sitting Static: Fair Balance Sitting Dynamic: Fair Balance-Standing Static: Poor Picking up an Object (QC): 4 (SBA) Occupational Therapy Pt admitted to ARU with vertigo and debility. At [facility], pt was independent with ADLS. Upon initial evaluation, pt was independent with eating and oral care, CGA showering, LE dressing and toileting, and set up with footwear and UE dressing. OT tx focused on increasing BUE Strength and activity tolerance and increasing safety and independence with ADLS and functional mobility. Pt made good progress towards goals, attaining IND level with all ADLs. Pt discharged from hospital, d/c from OT. Decreased Activ Tolerance, Decreased UE Strength, Impaired I ADL's Eating (QC): 6 Oral Hygiene (QC): 6 (IND standing at sink.) Shower/Bathe Self (QC): 6 (IND) Upper Body Dressing (QC): 6 Lower Body Dressing (QC): 6 On/Off Footwear (QC): 6 Toileting Hygiene (QC): 6 PT [facility] Goals [facility] Goals PT [facility] Goals Time Frame: Jul 06, 2022 Roll Left to Right (QC): 6 Sit to Lying (QC): 6 Lying-Sitting on Side/Bed(QC): 6 Sit to Stand (QC): 6 Chair/Lkl-cx-Cmffz Xfer(QC): 6 Toilet/Commode Transfer (QC): 6 Car Transfer (QC): 6 Does the Patient Walk: Yes Walk 10 feet (QC): 6 Walk 10ft-Uneven Surface(QC): 6 Walk 50ft with 2 Turns (QC): 6 Walk 150 ft (QC): 6 Wheel 50 feet with 2 turns (QC: 9 Wheel 150 feet: 9 1 Step (curb) (QC): 6 4 Steps (QC): 6 12 Steps (QC): 6 Picking up an Object (QC): 6 OT [facility] Goals Dope House Operator Helper Goals Time Frame: Jul 06, 2022 Acute change in mental status: 0 Inattention: 0 Disorganized thinkin Altered level of consciousness: 0 Eating (QC): 6 (met) Oral Hygiene (QC): 6 (met) Toileting Hygiene (QC): 6 (met) Shower/Bathe Self (QC): 6 (met) Upper Body Dressing (QC): 6 (met) Lower Body Dressing (QC): 6 (met) On/Off Footwear (QC): 6 (met) 1=Demonstrate adherence to instructed precautions during ADL tasks. 2=Patient will verbalize/demonstrate understanding of assistive devices/modifications for ADL. 3=Patient will improve strength/tolerance for activity to enable patient to perform ADL's. NAGA MUHAMMAD OT Jun 27, 2022 16:04
== END 2022-06-27 13:40 | disposition home or self-care (01) | DRG 149 ==
PROVIDERS: ADMIT Internal Medicine; ATTEND Internal Medicine
DX: R42 Dizziness and giddiness (principal); R53.1 Weakness; Z91.81 History of falling; R26.9 Unspecified abnormalities of gait and mobility; H55.09 Other forms of nystagmus; E78.00 Pure hypercholesterolemia, unspecified; M19.91 Primary osteoarthritis, unspecified site; Z87.891 Personal history of nicotine dependence; Z85.46 Personal history of malignant neoplasm of prostate; Z85.038 Personal history of other malignant neoplasm of large intestine; Z88.5 Allergy status to narcotic agent
CPT/HCPCS: 36415; 80053; 85025

== ENCOUNTER 2022-10-18 09:45 | Outpatient (RCR) | payer MEDICARE, OTHER | END 2022-10-19 | disposition home or self-care (01) | LOC: ONC 09:45 | PROVIDERS: ATTEND Radiology Radiation Oncology | DX: C61 Malignant neoplasm of prostate (principal) | CPT/HCPCS: 36415; 84153 ==